=== PATIENT | female | born 1975 | race Caucasian/White ===

== ENCOUNTER → 2017-06-04 13:37 | Outpatient (CLI) | payer BC, SELFPAY ==
--- NOTE | 2017-06-04 13:40 | CT_ITS ---
CT abdomen pelvis wo con CLINICAL INDICATION: Right-sided abdominal pain ORDERING PHYSICIAN: Jez Enamorado MD PATIENT AGE: 41 years COMPARISON: 08/28/2016 TECHNIQUE: Axial images obtained with sagittal and coronal reformats. PROCEDURE: Oral Contrast: None IV Contrast: None . FINDINGS: Lung bases are clear. The liver, gallbladder, spleen, adrenal glands, and pancreas have an unremarkable unenhanced CT appearance. No renal or ureteral calculi, hydronephrosis, or renal mass evident. Unremarkable appearing urinary bladder. No evidence of appendicitis or diverticulitis. No intestinal obstruction or free air is. There is a small umbilical hernia containing fat. No pelvic mass, focal inflammatory change, or pelvic fluid collection evident. No acute bony anomalies. IMPRESSION: 1. No acute abdominal or pelvic findings. 2. Small umbilical hernia containing fat
== END ==
PROVIDERS: Family Provider Emergency Medicine; PCP Emergency Medicine; Visit Provider Emergency Medicine
DX: R10.9 Unspecified abdominal pain (principal)
CPT/HCPCS: 74176

== ENCOUNTER → 2017-09-09 09:12 | Outpatient (REF) | payer BC, SELFPAY ==
[2017-09-09 13:40] LABS: Basophils # 0.1 K/mm3 (0-0.2); Basophils % 0.6 % (0.1-2.0); Eosinophils # 0.4 K/mm3 (0.0-0.4); Eosinophils % 4.9 % (0.1-12.0); Hematocrit 45.4 % (37.0-47.0); Hemoglobin 14.1 g/dL (12.2-16.2); Lymphocytes # 1.4 K/mm3 (0.7-4.5); Lymphocytes % 16.7 K/mm3 (10-50); Mean Corpuscular Volume 87.2 fl (81-99); Mean Platelet Volume 8.6 fl (7.4-10.4); Monocytes # 0.5 K/mm3 (0.1-1.0); Monocytes % 6.3 % (1.7-9.3); Neutrophils # 6.1 K/mm3 (1.8-7.8); Neutrophils % 71.5 % (37.0-80.0); Platelet Count 321 K/mm3 (142-424); Red Cell Distribution Width 12.6 % (11.5-17.5); White Blood Count 8.5 K/mm3 (4.8-10.8)
[2017-09-09 14:24] LABS: Alanine Aminotransferase 32 U/L (12-78); Albumin/Globulin Ratio 1.1 (1.1-1.8); Alkaline Phosphatase 94 U/L (46-116); Anion Gap 12.3 mEq/L (5-15); Aspartate Amino Transferase 16 U/L (15-37); Bilirubin,Total 0.4 mg/dL (0.2-1.0); Blood Urea Nitrogen 16 mg/dL (7-18); Calcium 9.5 mg/dL (8.5-10.1); Carbon Dioxide 31 mmol/L (21.0-32.0); Chloride 101 mmol/L (98-107); Chol/HDL Ratio 4.5 (1-3.5); Cholesterol 187 mg/dL (140-200); Creatinine,Serum 0.71 mg/dL (0.55-1.02); Estimated Glomerular Filt Rate 90 ml/min (>60); GFR (African American) 109 ML/MIN (>60); Globulin 3.6 gm/dl (1.3-3.2); Glucose 126 mg/dL (74-106); HDL Cholesterol 42 mg/dL (29-89); LDL Cholesterol 128 mg/dL (0-130); Potassium 4.3 mmoL/L (3.5-5.1); Sodium 140 mmol/L (136-145); T4 (Thyroxine) 6.6 ug/dl (4.7-13.3); Thyroid Stimulating Hormone 6.52 uIU/ml (0.358-3.740); Total Protein,Serum 7.6 gm/dL (6.4-8.2); Triglycerides 86 mg/dL (30-200); VLDL Cholesterol 17 mg/dL (0-40)
[2017-09-10 09:01] LABS: Vitamin D 25 Hydroxy 40.9 ng/mL (30.0-100.0)
[2017-09-10 15:40] LABS: Hemoglobin A1C 6.2 % (0.0-7.0)
== END ==
LOC: LAB 09:12
PROVIDERS: Visit Provider Physician Assistant
DX: R60.0 Localized edema (principal); E03.9 Hypothyroidism, unspecified
CPT/HCPCS: 80053; 80061; 82652; 83036; 84436; 84443; 85025

== ENCOUNTER → 2017-09-09 14:20 | Outpatient (CLI) | payer BC, SELFPAY | PROVIDERS: Visit Provider Physician Assistant | DX: E03.9 Hypothyroidism, unspecified (principal) ==

== ENCOUNTER → 2017-10-12 12:56 | Outpatient (CLI) | payer BC, SELFPAY ==
--- NOTE | 2017-10-12 12:58 | CA_ITS ---
PROCEDURE: 2-D M-mode and color Doppler study INDICATIONS FOR THE TEST: Chest pain COPD Heart Murmur Tobacco Smoking Palpitations Fatigue Syncope EdemaX Hypertension Diabetes Mellitus Rheumatic Fever SOB KAMARA ObesityXHyperlipidemia Family History HD Additional History TDS SECONDARY TO MORBID OBESITY PATIENT INFORMATION HEIGHT: 65 WEIGHT:304 GENDER: Female B/P:132/80 2-D/M-MODE INTERPRETATION: 2-D MEASUREMENTS OBSERVED VALUES IN CMS Right Ventricular Dimension (RVDd) 2.5 Interventricular Septum (Thickness)(IVsd) .9 Left Ventricular Internal Dimensions(LVIDd) 5.6 Left Ventricular Posterior Wall (Thickness)(LVPWd) 1.3 Aortic Root 3.3 Aortic Cusp Separation 1.7 Left Atrial Dimensions (LAD) 3.9 2D 1. Left atrium is mildly enlarged, left ventricle is normal size, left ventricle wall thickness is upper limit of normal, there is preserved left ventricular systolic function, visually estimated ejection fraction 55% with no obvious regional wall motion abnormality. 2. The right atrium and right ventricle are mildly enlarged with normal contractility. 3. The aortic valve is minimally thickened and fibrosed. 4. The mitral and tricuspid valve are structurally normal. 5. The pulmonic valve is poorly visualized. 6. No significant pericardial effusion noted. DOPPLER INTERROGATION: Doppler interrogation of the aortic, mitral and tricuspid valvular presence of mild mitral and tricuspid regurgitation, calculated right ventricular systolic pressure is 49 mmHg consistent with moderate pulmonary hypertension, diastolic parameters are inconclusive. CONCLUSION: 1. Mildly enlarged left atrium, normal left ventricular size, visually estimated ejection fraction 55% with no obvious regional wall motion abnormality, diastolic parameters are inconclusive. 2. Mildly enlarged right ventricle with normal contractility. 3. Mild mitral and tricuspid regurgitation, calculated right ventricular systolic pressure is 49 mmHg consistent with moderate pulmonary hypertension 4. No significant pericardial effusion noted.
== END ==
PROVIDERS: Family Provider Emergency Medicine; PCP Emergency Medicine; Visit Provider Emergency Medicine
DX: R60.0 Localized edema (principal)
CPT/HCPCS: 93306

== ENCOUNTER → 2017-11-02 09:36 | Outpatient (CLI) | payer BC, SELFPAY ==
--- NOTE | 2017-11-02 09:39 | CT_ITS ---
CT angio chest Ordering Physician: Jose L Jensen MD Patient Age: 42 years: Female HISTORY: ITS.REASON: Shortness of breath TECHNIQUE: Thin section Helical CT scanning performed the chest following bolus administration 75 cc Isovue-[id number] followed by 40 and multiple normal saline axial reconstruction performed. In addition sagittal and coronal slabMipp images performed on CT workstation All CT scans at this facility used one or more dose reduction techniques , viz: automatic exposure control, ma/Kv adjustment per patient's size, (including targeted exam where dose matched to the indication; i.e. head); or iterative reconstruction . COMPARISON : FINDINGS No evidence of pulmonary embolism. Pulmonary arteries appear moderate slightly generous in size. But do not appear to be significantly dilated or enlarged. Right and left pulmonary artery measure up to 2.1 cm bilateral. Aorta normal caliber. No aneurysm. No significant findings. Heart. Upper Normal size. No pericardial effusion. Lung rosario appear clear with no focal nodule or mass. No consolidation. No focal infiltrate. . There may be some very subtle groundglass opacity character to the upper lobes bilaterally suspect reflecting atelectasis given the relatively modest lung volume in this generous size patient.. Relative low lung volume noted on this study diaphragm only down to the anterior right fourth fifth rib. Suggest follow-up chest film for comparison this regard.. No hilar no mediastinal adenopathy or mass.Generous adipose at superior most mediastinum Osseous marginal osteophytes throughout spine reflecting developing degenerative changes here. No pleural effusion. No pleural findings. Chest wall unremarkable. Airways. Modest caliber, but overall unremarkable. Uppermost abdomen. Gallbladder generous in size but no gallstones evident.. Fatty changes liver. IMPRESSION----- Pulmonary arteries appear within normal limits. No evidence of pulmonary embolism Generous caliber but within normal limits, arteries. Lungs overall clear. No focal pneumonia or consolidation.. Perhaps very subtle Subtle groundglass opacity towards upper lung rosario which in this case I tend to favor complex mild atelectasis rather than lung pathology , particular Noting Relatively low lung volumes on this CT in this generous size patient... Follow-up 2 view chest suggested to correlate lung volume. No prior chest films Heart upper normal in size Borderline Cardiomegaly.
== END ==
PROVIDERS: Family Provider Emergency Medicine; PCP Emergency Medicine; Visit Provider Internal Medicine
DX: R06.09 Other forms of dyspnea (principal); R07.89 Other chest pain; I27.20 Pulmonary hypertension, unspecified; E66.9 Obesity, unspecified; Z68.43 Body mass index [BMI] 50.0-59.9, adult
CPT/HCPCS: 71275; Q9967

== ENCOUNTER → 2018-06-24 14:50 | Outpatient (CLI) | payer BC, SELFPAY ==
--- NOTE | 2018-06-24 14:54 | XR_ITS ---
EXAM: XR thoracic spine 3V HISTORY: Thoracic spine pain radiating into the right side ITS.REASON: thoracic back pain Comparison: None FINDINGS: There is mild multilevel degenerative disc disease in the midthoracic spine. Endplate osteophytes are present from T6 to T12. No fracture or dislocation. No lytic or blastic change. There is minimal mid thoracic curvature convex right IMPRESSION: Degenerative changes, no acute finding
== END ==
PROVIDERS: PCP Physician Assistant; Visit Provider Physician Assistant
DX: M54.6 Pain in thoracic spine (principal)
CPT/HCPCS: 72072

== ENCOUNTER → 2018-12-06 18:13 | Outpatient (CLI) | payer BC, SELFPAY ==
[2018-12-06 18:32] LABS: Basophils # 0.1 K/mm3 (0-0.2); Basophils % 0.7 % (0.1-2.0); Eosinophils # 0.7 K/mm3 (0.0-0.4); Eosinophils % 8.5 % (0.1-12.0); Hemoglobin 13.9 g/dL (12.2-16.2); Lymphocytes # 1.5 K/mm3 (0.7-4.5); Lymphocytes % 17.4 % (10-50); Mean Corpuscular HGB Conc 31.7 g/dL (31.8-35.4); Mean Corpuscular Hemoglobin 27.9 pg (27.0-31.2); Mean Corpuscular Volume 88.1 fl (81-99); Mean Platelet Volume 7.7 fl (7.4-10.4); Monocytes # 0.7 K/mm3 (0.1-1.0); Monocytes % 8.3 % (1.7-9.3); Neutrophils # 5.7 K/mm3 (1.8-7.8); Neutrophils % 65.2 % (37.0-80.0); Platelet Count 354 K/mm3 (142-424); Red Blood Count 4.99 M/mm3 (4.20-5.40); Red Cell Distribution Width 12.9 % (11.5-17.5); White Blood Count 8.7 K/mm3 (4.8-10.8)
[2018-12-06 20:47] LABS: Alanine Aminotransferase 31 U/L (12-78); Albumin Level 3.9 gm/dL (3.4-5.0); Albumin/Globulin Ratio 1.1 (1.1-1.8); Alkaline Phosphatase 99 U/L (46-116); Anion Gap 13.9 mEq/L (5-15); Aspartate Amino Transferase 12 U/L (15-37); Bilirubin,Total 0.3 mg/dL (0.2-1.0); Blood Urea Nitrogen 9 mg/dL (7-18); Calcium 9.2 mg/dL (8.5-10.1); Carbon Dioxide 29 mmol/L (21.0-32.0); Chloride 101 mmol/L (98-107); Chol/HDL Ratio 4.3 (1-3.5); Cholesterol 175 mg/dL (140-200); Creatinine,Serum 0.64 mg/dL (0.55-1.02); Estimated Glomerular Filt Rate 101 ml/min (>60); GFR (African American) 122 ML/MIN (>60); Globulin 3.5 gm/dl (1.3-3.2); Glucose 88 mg/dL (74-106); HDL Cholesterol 41 mg/dL (29-89); LDL Cholesterol 116 mg/dL (0-130); Potassium 3.9 mmoL/L (3.5-5.1); Sodium 140 mmol/L (136-145); Total Protein,Serum 7.4 gm/dL (6.4-8.2); Triglycerides 90 mg/dL (30-200); VLDL Cholesterol 18 mg/dL (0-40)
[2018-12-08 09:48] LABS: Vitamin D 25 Hydroxy 30.5 ng/mL (30.0-100.0)
== END ==
PROVIDERS: Visit Provider Nurse Practitioner Family
DX: J34.89 Other specified disorders of nose and nasal sinuses (principal)
CPT/HCPCS: 80053; 80061; 82652; 84443; 85025

== ENCOUNTER → 2020-08-28 17:17 | Outpatient (CLI) | payer BC, SELFPAY ==
[2020-08-28 17:38] LABS: Basophils # 0.1 K/mm3 (0-0.2); Basophils % 0.6 % (0.1-2.0); Eosinophils # 0.5 K/mm3 (0.0-0.4); Eosinophils % 4.8 % (0.1-12.0); Hematocrit 43.7 % (37.0-47.0); Hemoglobin 13.9 g/dL (12.2-16.2); Lymphocytes # 1.5 K/mm3 (0.7-4.5); Lymphocytes % 15.8 % (10-50); Mean Corpuscular HGB Conc 31.9 g/dL (31.8-35.4); Mean Corpuscular Hemoglobin 27.8 pg (27.0-31.2); Mean Corpuscular Volume 87.3 fl (81-99); Mean Platelet Volume 8.5 fl (7.4-10.4); Monocytes # 0.5 K/mm3 (0.1-1.0); Monocytes % 4.8 % (1.7-9.3); Neutrophils # 7.2 K/mm3 (1.8-7.8); Platelet Count 327 K/mm3 (142-424); Red Blood Count 5.01 M/mm3 (4.20-5.40); Red Cell Distribution Width 12.9 % (11.5-17.5); White Blood Count 9.7 K/mm3 (4.8-10.8)
[2020-08-28 17:44] LABS: Alanine Aminotransferase 28 U/L (12-78); Albumin Level 4.2 g/dl (3.5-5.0); Albumin/Globulin Ratio 1.6 (1.1-1.8); Alkaline Phosphatase 83 U/L (38-126); Aspartate Amino Transferase 25 U/L (14-36); Bilirubin,Total 0.6 mg/dl (0.2-1.3); Blood Urea Nitrogen 12 mg/dl (7-17); Calcium 8.8 mg/dl (8.4-10.2); Carbon Dioxide 28 mmol/L (22.0-30.0); Chloride 102 mmol/L (98-107); Chol/HDL Ratio 4.4 (1-3.5); Cholesterol 179 mg/dl (140-200); Estimated Glomerular Filt Rate 108 ml/min (>60); GFR (African American) 130 ML/MIN (>60); Globulin 2.7 g/dL (1.3-3.2); Glucose 161 mg/dl (74-100); HDL Cholesterol 41 mg/dl (40-60); Sodium 137 mmol/L (136-145); Total Protein,Serum 6.9 g/dl (6.3-8.2); Triglycerides 118 mg/dl (30-150); VLDL Cholesterol 24 mg/dL (0-40)
[2020-08-28 17:55] LABS: Direct LDL Cholesterol 111.93 mg/dL (100-129)
[2020-08-28 18:02] LABS: 25-OH Vitamin D, Total 27.4 ng/mL (30-100)
[2020-08-28 18:03] LABS: Hemoglobin A1C 6.6 % (4.0-6.0); T4 (Thyroxine) 6.4 ug/dl (5.53-11.0)
[2020-08-28 18:14] LABS: Thyroid Stimulating Hormone 5.23 uIU/mL (0.465-4.68)
== END ==
PROVIDERS: Visit Provider Nurse Practitioner Family
DX: I10 Essential (primary) hypertension (principal); E03.9 Hypothyroidism, unspecified; R73.03 Prediabetes; E55.9 Vitamin D deficiency, unspecified; E66.9 Obesity, unspecified; Z68.43 Body mass index [BMI] 50.0-59.9, adult
CPT/HCPCS: 80053; 80061; 82306; 83036; 84436; 84443; 85025

== ENCOUNTER 2025-01-08 21:20 | Emergency (ER) | payer BC, SELFPAY ==
--- OUTSIDE RECORDS SUMMARY | 2025-01-08 22:07 | XMS_ITS | Clinical Summary ---
Author Organization [facility] Address [address] [place] [id number] Care Team Providers Care Cell Preparer Name Role Phone Jez Enamorado MD Primary Care Provider [phone] Allergies No known active allergies Medications HYDROcod Polst-CPM Polst ER (TUSSIONEX PENNKINETIC) 10-8 MG/5ML ER suspension Take FIVE ML (ONE teaspoonful) AT BEDTIME FOR FIVE DAYS 0 07/27/2018 Active levothyroxine (SYNTHROID, LEVOTHROID) 25 MCG tablet Take 25 mcg by mouth Daily. Active Active Problems No known active problems Social History Tobacco Use Types Packs/Day Years Used Date Smoking Tobacco: Never Abuse Screen Answer Date Recorded Unsafe at Home or Work/School Not on file Feels Threatened by Someone? Not on file 02/2023 Does Anyone Keep You from Co ntacting Others or Doint Things Outside the Home? Not on file 01/21/2023 Physical Sign of Abuse Present Not on file 1 Housing Stability Answer Date Recorded Current Living Arrangements Not on file 01/11 Potentially Unsafe Housing Conditions Not on polly e 01/21/2023 Family and Community Support Answer Samuel e Recorded Help with Day-to-Day Activities Not on file 01/21/2023 Lonely or Isolated Not on file 01/21/2023 Employment Answer Date Recorded Do you want help finding or keeping work or a renuka b? Not on file 01/21/2023 Disabilities Answer Date Recorded Concentrating, Remembering, or Making Decisions Difficulty Not on file 01/21/2023 Doing Errands Independently Difficulty Not on fi le 01/21/2023 Education Answer Date Recorded Help with school or training? Not on file Preferred Language Not on file 01/21/2023 Comments No Sex and Gender Information Value Date Recorded Sex Assigned at Not on file Legal Sex Female 8:29 PM EDT Gender Identity Not on file Sexual Orientation Not on file Last Filed Vital Signs Vital Sign Reading Time Taken Comments Blood Pressure 138/88 07/29/2018 4:30 PM EDT Pulse 76 07/29/2018 4:30 PM EDT Temperature 36.8 C (98.3 F) 07/29/2018 4:30 PM EDT Respiratory Rate 20 07/29/2018 4:30 PM EDT Oxygen Saturation 98% 07/29/2018 4:30 PM EDT Inhaled Oxygen Concentration - - Weight 141 kg (311 lb) 07/29/2018 4:30 PM EDT Height 167.6 cm (5' 6 ) 07/29/2018 4:30 PM EDT Body Mass Index 50.2 07/29/2018 4:30 PM EDT Plan of Treatment Health Maintenance Due Date Last Done Comments Annual Gynecologic Pelvic and Breast Exam 1974 TDAP/TD VACCINES (1 - Tdap) 1993 MAMMOGRAM 2014 ANNUAL PHYSICAL 07/29/2018 HEPATITIS C SCREENING 07/29/2018 COLOGUARD 08/02/2019 COLON CANCER SCREENING 5 YEAR SIGMOIDOSCOPY 08/02/2019 COLONOSCOPY 08/02/2019 COLORECTAL CANCER SCREENING 08/02/2019 CT COLONOGRAPHY 08/02/2019 FECAL OCCULT BLOOD TEST 08/02/2019 FIT Testing (1 year) 08/02/2019 Pneumococcal Vaccine 50+ (1 of 1 - PCV) 2024 ZOSTER VACCINE (1 of 2) 2024 INFLUENZA VACCINE 11/11/2024 Care Teams Cell Preparer Relationship Specialty Start Date End Date Jez Enamorado MD [address] ATTN: [place] [id number] PCP - General 02/05/15
--- OUTSIDE RECORDS SUMMARY | 2025-01-08 22:07 | XMS_ITS | Data Portability ---
Author Organization [facility] Address [address] [place] [address] Care Team Providers Care Bisque Tile Burner Name Role Phone ALFREDOZACHHubert BLAISE Primary Care Provider Assessment No assessment recorded. Plan of Treatment Reminders Order Date Submit Date Provider Last Modified By Organization Details Last Modified Time Details Appointments None recorded. Lab influenza virus A + B + SARS-CoV-2 (COVID19) Ag panel, rapid IA, upper respiratory specimen 2024 025 [facility], [address] [place], [address], 5 11:03:22 TSH + free T4, serum 2023 024 [facility], [address], [address], [place], [address], 4 14:12:55 HbA1c (hemoglobin A1c), blood 2023 024 [facility], [address], [address], [place], [address], 4 14:12:56 CBC w/ auto diff 2023 024 [facility], [address], [address], [place], [address], 4 14:12:53 CMP, serum or plasma 2023 024 [facility], [address], [address], [place], [address], 4 14:12:54 HbA1c (hemoglobin A1c), blood 2023 024 [facility], [address], [address], [place], [address], 4 05:09:45 lipid panel, serum 2023 024 [facility], [address], [address], [place], [address], 4 05:09:44 CBC w/ auto diff 2023 024 [facility], [address], [address], [place], [address], 4 05:09:41 CMP, serum or plasma 2023 024 [facility], [address], [address], [place], [address], 4 05:09:43 TSH + free T4, serum 2023 024 [facility], [address], [address], [place], [address], 4 05:09:44 magnesium, serum or plasma 2022 023 [facility], [address], [address], [place], [address], 3 10:36:39 HbA1c (hemoglobin A1c), blood 2022 023 [facility], [address], [address], [place], [address], 3 10:36:37 CMP, serum or plasma 2022 023 [facility], [address], [address], [place], [address], 3 10:36:36 CBC w/ auto diff 2022 023 [facility], [address], [address], [place], [address], 3 10:36:34 TSH, ultra-sensi tive, serum 2022 023 [facility], [address], [address], [place], [address], 3 10:36:38 Referral None recorded. Procedures None recorded. Surgeries None recorded. Imaging XR, ankle, 3 or more view 2023 024 [facility] (Scheduling), [address] [place], [address], 4 16:21:32 XR, lower extremity [address] (Scheduling), [address] [place], [address], 4 07:48:35 XR, tibia + fibula, 2 view [address] (Scheduling), [address] [place], [address], 4 07:48:35 XR, foot, 3 or more view 2023 024 [facility] (Scheduling), [address] [place], [address], 4 16:21:34 US, duplex, venous, lower extremity, unilateral 2022 023 [email or web address] 0 [facility], [address] [place], [address], 3 07:58:25 Medication Orders Tamiflu 75 mg capsule 2024 025 [facility], [address] [place] [address], [id number], 5 14:43:24 Ozempic 1 mg/dose (4 mg/3 mL) subcutaneou s pen injector 2023 024 [facility], [address] [place] [address], [id number], 4 17:50:17 Medrol (Ronal) 4 mg tablets in a dose pack 2023 025 [facility], [address] [place] [address], [id number], 5 10:53:35 Zithromax Z-Ronal 250 mg tablet 2023 025 [facility], [address] [place] [address], [id number], 5 10:53:35 bupropion HCl XL 150 mg 24 hr tablet, extended release 2023 025 [facility], [address] [place] [address], [id number], 5 10:53:35 Patient TargetsNo targets recorded. Patient InstructionsNo instructions recorded. Reason for Referral None Reported. Results Created Date Observation Date Name Description Value Unit Range Abnormal Flag Note LastModifiedBy Organization Detail LastModifiedTime 09/23/19 23 09/23/2022 CBC WITH DIFFE RENTI AL/PL ATELE T WBC 8.1 x10e3 /uL 3.4-10 .8 Not Available [facility] ([facility]) [address] [facility], [place], [address], 09/23/2022 10:36:34 09/23/19 23 09/23/2022 CBC WITH DIFFE RENTI AL/PL ATELE T RBC 4.46 x10e6 /uL 3.77-5 .28 Not Available [facility] ([facility]) [address] [facility], [place], [address], 09/23/2022 10:36:34 09/23/19 23 09/23/2022 CBC WITH DIFFE RENTI AL/PL ATELE T hemoglobin 12.4 g/dL 11.1-1 5.9 Not Available [facility] ([facility]) [address] [facility], [place], [address], 09/23/2022 10:36:34 09/23/19 23 09/23/2022 CBC WITH DIFFE RENTI AL/PL ATELE T hematocrit 38.2 % 34.0-4 6.6 Not Available [facility] ([facility]) [address] [facility], [place], [address], 09/23/2022 10:36:34 09/23/19 23 09/23/2022 CBC WITH DIFFE RENTI AL/PL ATELE T MCV 86 fL 79-97 Not Available [facility] ([facility]) [address] [place], [address], 09/23/2022 10:36:34 09/23/1909/23/2022 CBC WITH DIFFE RENTI AL/PL ATELE T MCH 27.8 pg 26.6-3 3.0 Not Available [facility] ([facility]) [address] [facility], [place], [address], 09/23/2022 10:36:34 09/23/19 23 09/23/2022 CBC WITH DIFFE RENTI AL/PL ATELE T MCHC 32.5 g/dL 31.5-3 5.7 Not Available [facility] ([facility]) [address] [place], [address], 09/23/2022 10:36:34 09/23/19 23 09/23/2022 CBC WITH DIFFE RENTI AL/PL ATELE T RDW 12.4 % 11.7-1 5.4 Not Available [facility] ([facility]) [address] [facility], [place], [address], 09/23/2022 10:36:34 09/23/19 23 09/23/2022 CBC WITH DIFFE RENTI AL/PL ATELE T platelets 328 x10e3 /uL 150-45 0 Not Available [facility] ([facility]) [address] [facility], [place], [address], 09/23/2022 10:36:34 09/23/19 23 09/23/2022 CBC WITH DIFFE RENTI AL/PL ATELE T neutrophils 66 % not estab. Not Available [facility] ([facility]) [address] [facility], [place], [address], 09/23/2022 10:36:34 09/23/19 23 09/23/2022 CBC WITH DIFFE RENTI AL/PL ATELE T lymphs 19 % not estab. Not Available [facility] ([facility]) [address] [facility], [place], [address], 09/23/2022 10:36:34 09/23/19 23 09/23/2022 CBC WITH DIFFE RENTI AL/PL ATELE T monocytes 8 % not estab. Not Available [facility] ([facility]) [address] [facility], [place], [address], 09/23/2022 10:36:34 09/23/19 23 09/23/2022 CBC WITH DIFFE RENTI AL/PL ATELE T eos 6 % not estab. Not Available [facility] ([facility]) [address] [facility], [place], [address], 09/23/2022 10:36:34 09/23/19 23 09/23/2022 CBC WITH DIFFE RENTI AL/PL ATELE T basos 1 % not estab. Not Available [facility] ([facility]) [address] [facility], [place], [address], 09/23/2022 10:36:34 09/23/19 23 09/23/2022 CBC WITH DIFFE RENTI AL/PL ATELE T immature cells ON SITE SOIL EVALUATOR Not Available [facility] ([facility]) [address] [facility], [place], [address], 09/23/2022 10:36:34 09/23/19 23 09/23/2022 CBC WITH DIFFE RENTI AL/PL ATELE T neutrophils (absolute) 5.4 x10e3 /uL 1.4-7. 0 Not Available [facility] ([facility]) [address] [facility], [place], [address], 09/23/2022 10:36:34 09/23/19 23 09/23/2022 CBC WITH DIFFE RENTI AL/PL ATELE T lymphs (absolute) 1.5 x10e3 /uL 0.7-3. 1 Not Available [facility] ([facility]) [address] [facility], [place], [address], 09/23/2022 10:36:34 09/23/19 23 09/23/2022 CBC WITH DIFFE RENTI AL/PL ATELE T monocytes(ab solute) 0.7 x10e3 /uL 0.1-0. 9 Not Available [facility] ([facility]) [address] [place], [address], 09/23/2022 10:36:34 09/23/19 23 09/23/2022 CBC WITH DIFFE RENTI AL/PL ATELE T eos (absolute) 0.5 x10e3 /uL 0.0-0. 4 above high normal Not Available [facility] ([facility]) [address] [place], [address], 09/23/2022 10:36:34 09/23/19 23 09/23/2022 CBC WITH DIFFE RENTI AL/PL ATELE T baso (absolute) 0.1 x10e3 /uL 0.0-0. 2 Not Available [facility] ([facility]) [address] [facility], [place], [address], 09/23/2022 10:36:34 09/23/19 23 09/23/2022 CBC WITH DIFFE RENTI AL/PL ATELE T immature granulocytes 0 % not estab. Not Available [facility] ([facility]) [address] [facility], [place], [address], 09/23/2022 10:36:34 09/23/19 23 09/23/2022 CBC WITH DIFFE RENTI AL/PL ATELE T immature grans (abs) 0.0 x10e3 /uL 0.0-0. 1 Not Available [facility] ([facility]) [address] [facility], [place], [address], 09/23/2022 10:36:34 09/23/19 23 09/23/2022 CBC WITH DIFFE RENTI AL/PL ATELE T NRBC ON SITE SOIL EVALUATOR Not Available [facility] ([facility]) [address] [facility], [place], [address], 09/23/2022 10:36:34 09/23/19 23 09/23/2022 CBC WITH DIFFE RENTI AL/PL ATELE T hematology comments: ON SITE SOIL EVALUATOR Not Available [facility] ([facility]) [address] [facility], [place], [address], 09/23/2022 10:36:34 09/23/19 23 09/23/2022 COMP. METAB OLIC PANEL (14) glucose 97 mg/dL 70-99 Not Available [facility] ([facility]) [address] [facility], [place], [address], 09/23/2022 10:36:36 09/23/19 23 09/23/2022 COMP. METAB OLIC PANEL (14) BUN 14 mg/dL 6-24 Not Available [facility] ([facility]) [address] [facility], [place], [address], 09/23/2022 10:36:36 09/23/19 23 09/23/2022 COMP. METAB OLIC PANEL (14) creatinine 0.60 mg/dL 0.57-1 .00 Not Available [facility] ([facility]) [address] [facility], [place], [address], 09/23/2022 10:36:36 09/23/19 23 09/23/2022 COMP. METAB OLIC PANEL (14) eGFR 111 mL/mi n/1.7 3 >59 Not Available [facility] ([facility]) [address] [facility], [place], [address], 09/23/2022 10:36:36 09/23/19 23 09/23/2022 COMP. METAB OLIC PANEL (14) BUN/creatini ne ratio 23 9-23 Not Available [facility] ([facility]) [address] [facility], [place], [address], 09/23/2022 10:36:36 09/23/19 23 09/23/2022 COMP. METAB OLIC PANEL (14) sodium 141 mmol/ L 134-14 4 Not Available [facility] ([facility]) [address] [facility], [place], [address], 09/23/2022 10:36:36 09/23/19 23 09/23/2022 COMP. METAB OLIC PANEL (14) potassium 4.2 mmol/ L 3.5-5. 2 Not Available [facility] ([facility]) [address] [facility], [place], [address], 09/23/2022 10:36:36 09/23/19 23 09/23/2022 COMP. METAB OLIC PANEL (14) chloride 102 mmol/ L 96-106 Not Available [facility] ([facility]) [address] [facility], [place], [address], 09/23/2022 10:36:36 09/23/19 23 09/23/2022 COMP. METAB OLIC PANEL (14) carbon dioxide, total 27 mmol/ L 20-29 Not Available [facility] ([facility]) [address] [facility], [place], [address], 09/23/2022 10:36:36 09/23/19 23 09/23/2022 COMP. METAB OLIC PANEL (14) calcium 9.6 mg/dL 8.7-10 .2 Not Available [facility] ([facility]) [address] [facility], [place], [address], 09/23/2022 10:36:36 09/23/19 23 09/23/2022 COMP. METAB OLIC PANEL (14) protein, total 7.1 g/dL 6.0-8. 5 Not Available [facility] ([facility]) [address] [facility], [place], [address], 09/23/2022 10:36:36 09/23/19 23 09/23/2022 COMP. METAB OLIC PANEL (14) albumin 4.5 g/dL 3.8-4. 8 Not Available [facility] ([facility]) [address] [place], [address], 09/23/2022 10:36:36 09/23/19 23 09/23/2022 COMP. METAB OLIC PANEL (14) globulin, total 2.6 g/dL 1.5-4. 5 Not Available [facility] ([facility]) [address] [place], [address], 09/23/2022 10:36:36 09/23/19 23 09/23/2022 COMP. METAB OLIC PANEL (14) A/G ratio 1.7 1.2-2. 2 Not Available [facility] ([facility]) [address] [facility], [place], [address], 09/23/2022 10:36:36 09/23/19 23 09/23/2022 COMP. METAB OLIC PANEL (14) bilirubin, total <0.2 mg/dL 0.0-1. 2 Not Available [facility] ([facility]) [address] [place], [address], 09/23/2022 10:36:36 09/23/19 23 09/23/2022 COMP. METAB OLIC PANEL (14) alkaline phosphatase 92 IU/L 44-121 Not Available [facility] ([facility]) [address] [facility], [place], [address], 09/23/2022 10:36:36 09/23/19 23 09/23/2022 COMP. METAB OLIC PANEL (14) AST (SGOT) 13 IU/L 0-40 Not Available [facility] ([facility]) [address] [facility], [place], [address], 09/23/2022 10:36:36 09/23/19 23 09/23/2022 COMP. METAB OLIC PANEL (14) ALT (SGPT) 17 IU/L 0-32 Not Available [facility] ([facility]) [address] [facility], [place], [address], 09/23/2022 10:36:36 09/23/19 23 09/23/2022 HEMOG LOBIN A1C hemoglobin A1C 6.0 % 4.8-5. 6 above high normal Predi abete s: 5.7 - 6.4 Diabe ryder: >6.4 Glyce tyron contr ol for adult s with diabe ryder: <7.0 Not Available [facility] ([facility]) [address] [facility], [place], [address], 09/23/2022 10:36:37 09/23/19 23 09/23/2022 TSH TSH 6.790 uIU/m L 0.450- 4.500 above high normal Not Available [facility] ([facility]) [address] [facility], [place], [address], 09/23/2022 10:36:37 09/23/19 23 09/23/2022 MAGNE SIUM magnesium 2.1 mg/dL 1.6-2. 3 Not Available [facility] ([facility]) [address] [facility], [place], [address], 09/23/2022 10:36:38 07/29/19 24 07/30/2023 CBC WITH DIFFE RENTI AL/PL ATELE T WBC 6.9 x10e3 /uL 3.4-10 .8 Not Available [facility] ([facility]) [address] [facility], [place], [address], 07/31/2023 05:09:41 07/29/19 24 07/30/2023 CBC WITH DIFFE RENTI AL/PL ATELE T RBC 4.57 x10e6 /uL 3.77-5 .28 Not Available [facility] ([facility]) [address] [place], [address], 07/31/2023 05:09:41 07/29/19 24 07/30/2023 CBC WITH DIFFE RENTI AL/PL ATELE T hemoglobin 12.6 g/dL 11.1-1 5.9 Not Available [facility] ([facility]) [address] [place], [address], 07/31/2023 05:09:41 07/29/19 24 07/30/2023 CBC WITH DIFFE RENTI AL/PL ATELE T hematocrit 40.2 % 34.0-4 6.6 Not Available [facility] ([facility]) [address] [place], [address], 07/31/2023 05:09:41 07/29/19 24 07/30/2023 CBC WITH DIFFE RENTI AL/PL ATELE T MCV 88 fL 79-97 Not Available [facility] ([facility]) [address] [place], [address], 07/31/2023 05:09:41 07/29/19 24 07/30/2023 CBC WITH DIFFE RENTI AL/PL ATELE T MCH 27.6 pg 26.6-3 3.0 Not Available [facility] ([facility]) [address] [facility], [place], [address], 07/31/2023 05:09:41 07/29/19 24 07/30/2023 CBC WITH DIFFE RENTI AL/PL ATELE T MCHC 31.3 g/dL 31.5-3 5.7 below low normal Not Available [facility] ([facility]) [address] [facility], [place], [address], 07/31/2023 05:09:41 07/29/19 24 07/30/2023 CBC WITH DIFFE RENTI AL/PL ATELE T RDW 12.8 % 11.7-1 5.4 Not Available [facility] ([facility]) [address] [place], [address], 07/31/2023 05:09:41 07/29/19 24 07/30/2023 CBC WITH DIFFE RENTI AL/PL ATELE T platelets 318 x10e3 /uL 150-45 0 Not Available [facility] ([facility]) [address] [place], [address], 07/31/2023 05:09:41 07/29/19 24 07/30/2023 CBC WITH DIFFE RENTI AL/PL ATELE T neutrophils 69 % not estab. Not Available [facility] ([facility]) [address] [place], [address], 07/31/2023 05:09:41 07/29/19 24 07/30/2023 CBC WITH DIFFE RENTI AL/PL ATELE T lymphs 18 % not estab. Not Available [facility] ([facility]) [address] [facility], [place], [address], 07/31/2023 05:09:41 07/29/19 24 07/30/2023 CBC WITH DIFFE RENTI AL/PL ATELE T monocytes 8 % not estab. Not Available [facility] ([facility]) [address] [facility], [place], [address], 07/31/2023 05:09:41 07/29/19 24 07/30/2023 CBC WITH DIFFE RENTI AL/PL ATELE T eos 5 % not estab. Not Available [facility] ([facility]) [address] [facility], [place], [address], 07/31/2023 05:09:41 07/29/19 24 07/30/2023 CBC WITH DIFFE RENTI AL/PL ATELE T basos 0 % not estab. Not Available [facility] ([facility]) [address] [facility], [place], [address], 07/31/2023 05:09:41 07/29/19 24 07/30/2023 CBC WITH DIFFE RENTI AL/PL ATELE T immature cells ON SITE SOIL EVALUATOR Not Available [facility] ([facility]) [address] [facility], [place], [address], 07/31/2023 05:09:41 07/29/19 24 07/30/2023 CBC WITH DIFFE RENTI AL/PL ATELE T neutrophils (absolute) 4.8 x10e3 /uL 1.4-7. 0 Not Available [facility] ([facility]) [address] [facility], [place], [address], 07/31/2023 05:09:41 07/29/19 24 07/30/2023 CBC WITH DIFFE RENTI AL/PL ATELE T lymphs (absolute) 1.2 x10e3 /uL 0.7-3. 1 Not Available [facility] ([facility]) [address] [place], [address], 07/31/2023 05:09:41 07/29/19 24 07/30/2023 CBC WITH DIFFE RENTI AL/PL ATELE T monocytes(ab solute) 0.6 x10e3 /uL 0.1-0. 9 Not Available [facility] ([facility]) [address] [facility], [place], [address], 07/31/2023 05:09:41 07/29/19 24 07/30/2023 CBC WITH DIFFE RENTI AL/PL ATELE T eos (absolute) 0.4 x10e3 /uL 0.0-0. 4 Not Available [facility] ([facility]) [address] [facility], [place], [address], 07/31/2023 05:09:41 07/29/19 24 07/30/2023 CBC WITH DIFFE RENTI AL/PL ATELE T baso (absolute) 0.0 x10e3 /uL 0.0-0. 2 Not Available [facility] ([facility]) [address] [facility], [place], [address], 07/31/2023 05:09:41 07/29/19 24 07/30/2023 CBC WITH DIFFE RENTI AL/PL ATELE T immature granulocytes 0 % not estab. Not Available [facility] ([facility]) [address] [facility], [place], [address], 07/31/2023 05:09:41 07/29/19 24 07/30/2023 CBC WITH DIFFE RENTI AL/PL ATELE T immature grans (abs) 0.0 x10e3 /uL 0.0-0. 1 Not Available [facility] ([facility]) [address] [facility], [place], [address], 07/31/2023 05:09:41 07/29/19 24 07/30/2023 CBC WITH DIFFE RENTI AL/PL ATELE T NRBC ON SITE SOIL EVALUATOR Not Available [facility] ([facility]) [address] [facility], [place], [address], 07/31/2023 05:09:41 07/29/19 24 07/30/2023 CBC WITH DIFFE RENTI AL/PL ATELE T hematology comments: ON SITE SOIL EVALUATOR Not Available [facility] ([facility]) [address] [place], [address], 07/31/2023 05:09:41 07/29/19 24 07/30/2023 COMP. METAB OLIC PANEL (14) glucose 95 mg/dL 70-99 Not Available [facility] ([facility]) [address] [place], [address], 07/31/2023 05:09:43 07/29/19 24 07/30/2023 COMP. METAB OLIC PANEL (14) BUN 12 mg/dL 6-24 Not Available [facility] ([facility]) [address] [place], [address], 07/31/2023 05:09:43 07/29/19 24 07/30/2023 COMP. METAB OLIC PANEL (14) creatinine 0.63 mg/dL 0.57-1 .00 Not Available [facility] ([facility]) [address] [place], [address], 07/31/2023 05:09:43 07/29/19 24 07/30/2023 COMP. METAB OLIC PANEL (14) eGFR 109 mL/mi n/1.7 3 >59 Not Available [facility] ([facility]) [address] [place], [address], 07/31/2023 05:09:43 07/29/19 24 07/30/2023 COMP. METAB OLIC PANEL (14) BUN/creatini ne ratio 19 9-23 Not Available [facility] ([facility]) [address] [place], [address], 07/31/2023 05:09:43 07/29/19 24 07/30/2023 COMP. METAB OLIC PANEL (14) sodium 140 mmol/ L 134-14 4 Not Available [facility] ([facility]) [address] [place], [address], 07/31/2023 05:09:43 04/17/20 24 07/30/2023 COMP. METAB OLIC PANEL (14) potassium 4.1 mmol/ L 3.5-5. 2 Not Available [facility] ([facility]) [address] [place], [address], 07/31/2023 05:09:43 07/29/19 24 07/30/2023 COMP. METAB OLIC PANEL (14) chloride 102 mmol/ L 96-106 Not Available [facility] ([facility]) [address] [facility], [place], [address], 07/31/2023 05:09:43 07/29/19 24 07/30/2023 COMP. METAB OLIC PANEL (14) carbon dioxide, total 25 mmol/ L 20-29 Not Available [facility] ([facility]) [address] [facility], [place], [address], 07/31/2023 05:09:43 07/29/19 24 07/30/2023 COMP. METAB OLIC PANEL (14) calcium 8.9 mg/dL 8.7-10 .2 Not Available [facility] ([facility]) [address] [place], [address], 07/31/2023 05:09:43 07/29/19 24 07/30/2023 COMP. METAB OLIC PANEL (14) protein, total 6.6 g/dL 6.0-8. 5 Not Available [facility] ([facility]) [address] [place], [address], 07/31/2023 05:09:43 07/29/19 24 07/30/2023 COMP. METAB OLIC PANEL (14) albumin 4.0 g/dL 3.9-4. 9 Not Available [facility] ([facility]) [address] [place], [address], 07/31/2023 05:09:43 07/29/19 24 07/30/2023 COMP. METAB OLIC PANEL (14) globulin, total 2.6 g/dL 1.5-4. 5 Not Available [facility] ([facility]) [address] [place], [address], 07/31/2023 05:09:43 07/29/19 24 07/30/2023 COMP. METAB OLIC PANEL (14) A/G ratio 1.5 1.2-2. 2 Not Available [facility] ([facility]) [address] [place], [address], 07/31/2023 05:09:43 07/29/19 24 07/30/2023 COMP. METAB OLIC PANEL (14) bilirubin, total 0.3 mg/dL 0.0-1. 2 Not Available [facility] ([facility]) [address] [place], [address], 07/31/2023 05:09:43 07/29/19 24 07/30/2023 COMP. METAB OLIC PANEL (14) alkaline phosphatase 91 IU/L 44-121 Not Available [facility] ([facility]) [address] [place], [address], 07/31/2023 05:09:43 07/29/19 24 07/30/2023 COMP. METAB OLIC PANEL (14) AST (SGOT) 14 IU/L 0-40 Not Available [facility] ([facility]) [address] [place], [address], 07/31/2023 05:09:43 07/29/19 24 07/30/2023 COMP. METAB OLIC PANEL (14) ALT (SGPT) 16 IU/L 0-32 Not Available [facility] ([facility]) [address] [place], [address], 07/31/2023 05:09:43 07/29/19 24 07/30/2023 LIPID PANEL WITH LDL/H DL RATIO cholesterol, total 170 mg/dL 100-19 9 Not Available [facility] ([facility]) [address] [facility], [place], [address], 07/31/2023 05:09:44 07/29/19 24 07/30/2023 LIPID PANEL WITH LDL/H DL RATIO triglyceride s 68 mg/dL 0-149 Not Available [facility] ([facility]) [address] [facility], [place], [address], 07/31/2023 05:09:44 07/29/19 24 07/30/2023 LIPID PANEL WITH LDL/H DL RATIO HDL cholesterol 47 mg/dL >39 Not Available [facility] ([facility]) [address] [facility], [place], [address], 07/31/2023 05:09:44 07/29/19 24 07/30/2023 LIPID PANEL WITH LDL/H DL RATIO VLDL cholesterol lorenza 13 mg/dL 5-40 Not Available [facility] ([facility]) [address] [facility], [place], [address], 07/31/2023 05:09:44 07/29/19 24 07/30/2023 LIPID PANEL WITH LDL/H DL RATIO LDL chol calc ([facility]) 110 mg/dL 0-99 above high normal Not Available [facility] ([facility]) [address] [facility], [place], [address], 07/31/2023 05:09:44 07/29/19 24 07/30/2023 LIPID PANEL WITH LDL/H DL RATIO comment: ON SITE SOIL EVALUATOR Not Available [facility] ([facility]) [address] [facility], [place], [address], 07/31/2023 05:09:44 07/29/19 24 07/30/2023 LIPID PANEL WITH LDL/H DL RATIO LDL/HDL ratio 2.3 ratio 0.0-3. 2 LDL/H DL Ratio Men Women 1/2 Avg.R isk 1.0 1.5 Avg.R isk 3.6 3.2 2X Avg.R isk 6.2 5.0 3X Avg.R isk 8.0 6.1 Not Available [facility] ([facility]) [address] [place], [address], 07/31/2023 05:09:44 07/29/19 24 07/31/2023 T4 AND TSH TSH 7.430 uIU/m L 0.450- 4.500 above high normal Not Available [facility] ([facility]) [address] [place], [address], 07/31/2023 05:09:44 07/29/19 24 07/31/2023 T4 AND TSH thyroxine (T4) 5.4 ug/dL 4.5-12 .0 Not Available [facility] ([facility]) [address] [place], [address], 07/31/2023 05:09:44 07/29/19 24 07/30/2023 HEMOG LOBIN A1C hemoglobin A1C 7.0 % 4.8-5. 6 above high normal Predi abete s: 5.7 - 6.4 Diabe ryder: >6.4 Glyce tyron contr ol for adult s with diabe ryder: <7.0 Not Available [facility] ([facility]) [address] [place], [address], 07/31/2023 05:09:45 10/26/19 24 10/27/2023 CBC WITH DIFFE RENTI AL/PL ATELE T WBC 8.1 x10e3 /uL 3.4-10 .8 Not Available [facility] ([facility]) [address] [place], [address], 10/27/2023 14:12:53 10/26/19 24 10/27/2023 CBC WITH DIFFE RENTI AL/PL ATELE T RBC 4.50 x10e6 /uL 3.77-5 .28 Not Available [facility] ([facility]) [address] [place], [address], 10/27/2023 14:12:53 10/26/19 24 10/27/2023 CBC WITH DIFFE RENTI AL/PL ATELE T hemoglobin 12.5 g/dL 11.1-1 5.9 Not Available [facility] ([facility]) [address] [place], [address], 10/27/2023 14:12:53 10/26/19 24 10/27/2023 CBC WITH DIFFE RENTI AL/PL ATELE T hematocrit 40.0 % 34.0-4 6.6 Not Available [facility] ([facility]) [address] [place], [address], 10/27/2023 14:12:53 10/26/19 24 10/27/2023 CBC WITH DIFFE RENTI AL/PL ATELE T MCV 89 fL 79-97 Not Available [facility] ([facility]) [address] [place], [address], 10/27/2023 14:12:53 10/26/19 24 10/27/2023 CBC WITH DIFFE RENTI AL/PL ATELE T MCH 27.8 pg 26.6-3 3.0 Not Available [facility] ([facility]) [address] [place], [address], 10/27/2023 14:12:53 10/26/19 24 10/27/2023 CBC WITH DIFFE RENTI AL/PL ATELE T MCHC 31.3 g/dL 31.5-3 5.7 below low normal Not Available [facility] ([facility]) [address] [place], [address], 10/27/2023 14:12:53 10/26/19 24 10/27/2023 CBC WITH DIFFE RENTI AL/PL ATELE T RDW 12.5 % 11.7-1 5.4 Not Available [facility] ([facility]) [address] [place], [address], 10/27/2023 14:12:53 10/26/19 24 10/27/2023 CBC WITH DIFFE RENTI AL/PL ATELE T platelets 331 x10e3 /uL 150-45 0 Not Available [facility] ([facility]) [address] [facility], [place], [address], 10/27/2023 14:12:53 10/26/19 24 10/27/2023 CBC WITH DIFFE RENTI AL/PL ATELE T neutrophils 69 % not estab. Not Available [facility] ([facility]) [address] [facility], [place], [address], 10/27/2023 14:12:53 10/26/19 24 10/27/2023 CBC WITH DIFFE RENTI AL/PL ATELE T lymphs 15 % not estab. Not Available [facility] ([facility]) [address] [facility], [place], [address], 10/27/2023 14:12:53 10/26/19 24 10/27/2023 CBC WITH DIFFE RENTI AL/PL ATELE T monocytes 8 % not estab. Not Available [facility] ([facility]) [address] [facility], [place], [address], 10/27/2023 14:12:53 10/26/19 24 10/27/2023 CBC WITH DIFFE RENTI AL/PL ATELE T eos 7 % not estab. Not Available [facility] ([facility]) [address] [facility], [place], [address], 10/27/2023 14:12:53 10/26/19 24 10/27/2023 CBC WITH DIFFE RENTI AL/PL ATELE T basos 1 % not estab. Not Available [facility] ([facility]) [address] [facility], [place], [address], 10/27/2023 14:12:53 10/26/19 24 10/27/2023 CBC WITH DIFFE RENTI AL/PL ATELE T immature cells ON SITE SOIL EVALUATOR Not Available [facility] ([facility]) [address] [place], [address], 10/27/2023 14:12:53 10/26/19 24 10/27/2023 CBC WITH DIFFE RENTI AL/PL ATELE T neutrophils (absolute) 5.6 x10e3 /uL 1.4-7. 0 Not Available [facility] ([facility]) [address] [place], [address], 10/27/2023 14:12:53 10/26/19 24 10/27/2023 CBC WITH DIFFE RENTI AL/PL ATELE T lymphs (absolute) 1.2 x10e3 /uL 0.7-3. 1 Not Available [facility] ([facility]) [address] [place], [address], 10/27/2023 14:12:53 10/26/19 24 10/27/2023 CBC WITH DIFFE RENTI AL/PL ATELE T monocytes(ab solute) 0.6 x10e3 /uL 0.1-0. 9 Not Available [facility] ([facility]) [address] [place], [address], 10/27/2023 14:12:53 10/26/19 24 10/27/2023 CBC WITH DIFFE RENTI AL/PL ATELE T eos (absolute) 0.5 x10e3 /uL 0.0-0. 4 above high normal Not Available [facility] ([facility]) [address] [place], [address], 10/27/2023 14:12:53 10/26/19 24 10/27/2023 CBC WITH DIFFE RENTI AL/PL ATELE T baso (absolute) 0.1 x10e3 /uL 0.0-0. 2 Not Available [facility] ([facility]) [address] [place], [address], 10/27/2023 14:12:53 10/26/19 24 10/27/2023 CBC WITH DIFFE RENTI AL/PL ATELE T immature granulocytes 0 % not estab. Not Available [facility] ([facility]) [address] [facility], [place], [address], 10/27/2023 14:12:53 10/26/19 24 10/27/2023 CBC WITH DIFFE RENTI AL/PL ATELE T immature grans (abs) 0.0 x10e3 /uL 0.0-0. 1 Not Available [facility] ([facility]) [address] [facility], [place], [address], 10/27/2023 14:12:53 10/26/19 24 10/27/2023 CBC WITH DIFFE RENTI AL/PL ATELE T NRBC ON SITE SOIL EVALUATOR Not Available [facility] ([facility]) [address] [facility], [place], [address], 10/27/2023 14:12:53 10/26/19 24 10/27/2023 CBC WITH DIFFE RENTI AL/PL ATELE T hematology comments: ON SITE SOIL EVALUATOR Not Available [facility] ([facility]) [address] [facility], [place], [address], 10/27/2023 14:12:53 10/26/19 24 10/27/2023 COMP. METAB OLIC PANEL (14) glucose 97 mg/dL 70-99 Not Available [facility] ([facility]) [address] [facility], [place], [address], 10/27/2023 14:12:54 10/26/19 24 10/27/2023 COMP. METAB OLIC PANEL (14) BUN 12 mg/dL 6-24 Not Available [facility] ([facility]) [address] [facility], [place], [address], 10/27/2023 14:12:54 10/26/19 24 10/27/2023 COMP. METAB OLIC PANEL (14) creatinine 0.64 mg/dL 0.57-1 .00 Not Available [facility] ([facility]) [address], [place], [address], 10/27/2023 14:12:54 10/26/19 24 10/27/2023 COMP. METAB OLIC PANEL (14) eGFR 108 mL/mi n/1.7 3 >59 Not Available [facility] ([facility]) [address], [place], [address], 10/27/2023 14:12:54 10/26/19 24 10/27/2023 COMP. METAB OLIC PANEL (14) BUN/creatini ne ratio 19 9-23 Not Available [facility] ([facility]) [address], [place], [address], 10/27/2023 14:12:54 10/26/19 24 10/27/2023 COMP. METAB OLIC PANEL (14) sodium 139 mmol/ L 134-14 4 Not Available [facility] ([facility]) [address] [facility], [place], [address], 10/27/2023 14:12:54 10/26/19 24 10/27/2023 COMP. METAB OLIC PANEL (14) potassium 4.1 mmol/ L 3.5-5. 2 Not Available [facility] ([facility]) [address] [facility], [place], [address], 10/27/2023 14:12:54 10/26/19 24 10/27/2023 COMP. METAB OLIC PANEL (14) chloride 100 mmol/ L 96-106 Not Available [facility] ([facility] [facility]) [address] [facility], [place], [address], 10/27/2023 14:12:54 10/26/19 24 10/27/2023 COMP. METAB OLIC PANEL (14) carbon dioxide, total 24 mmol/ L 20-29 Not Available [facility] ([facility]) [address] [facility], [place], [address], 10/27/2023 14:12:54 10/26/19 24 10/27/2023 COMP. METAB OLIC PANEL (14) calcium 9.2 mg/dL 8.7-10 .2 Not Available [facility] ([facility]) [address] [facility], [place], [address], 10/27/2023 14:12:54 10/26/19 24 10/27/2023 COMP. METAB OLIC PANEL (14) protein, total 6.9 g/dL 6.0-8. 5 Not Available [facility] ([facility]) [address] [facility], [place], [address], 10/27/2023 14:12:54 10/26/19 24 10/27/2023 COMP. METAB OLIC PANEL (14) albumin 4.1 g/dL 3.9-4. 9 Not Available [facility] ([facility]) [address] [facility], [place], [address], 10/27/2023 14:12:54 10/26/19 24 10/27/2023 COMP. METAB OLIC PANEL (14) globulin, total 2.8 g/dL 1.5-4. 5 Not Available [facility] ([facility]) [address] [facility], [place], [address], 10/27/2023 14:12:54 10/26/19 24 10/27/2023 COMP. METAB OLIC PANEL (14) bilirubin, total 0.2 mg/dL 0.0-1. 2 Not Available [facility] ([facility]) [address] [facility], [place], [address], 10/27/2023 14:12:54 10/26/19 24 10/27/2023 COMP. METAB OLIC PANEL (14) alkaline phosphatase 111 IU/L 44-121 Not Available [facility] ([facility]) [address] [facility], [place], [address], 10/27/2023 14:12:54 10/26/19 24 10/27/2023 COMP. METAB OLIC PANEL (14) AST (SGOT) 12 IU/L 0-40 Not Available [facility] ([facility]) [address] [place], [address], 10/27/2023 14:12:54 10/26/19 24 10/27/2023 COMP. METAB OLIC PANEL (14) ALT (SGPT) 18 IU/L 0-32 Not Available [facility] ([facility]) [address] [facility], [place], [address], 10/27/2023 14:12:54 10/26/19 24 10/27/2023 T4 AND TSH TSH 6.820 uIU/m L 0.450- 4.500 above high normal Not Available [facility] ([facility]) [address] [place], [address], 10/27/2023 14:12:55 10/26/19 24 10/27/2023 T4 AND TSH thyroxine (T4) 6.1 ug/dL 4.5-12 .0 Not Available [facility] ([facility]) [address] [place], [address], 10/27/2023 14:12:55 10/26/19 24 10/27/2023 HEMOG LOBIN A1C hemoglobin A1C 6.6 % 4.8-5. 6 above high normal Predi abete s: 5.7 - 6.4 Diabe ryder: >6.4 Glyce tyron contr ol for adult s with diabe ryder: <7.0 Not Available [facility] ([facility]) [address] [place], [address], 10/27/2023 14:12:56 07/07/19 25 07/06/2024 influ rainer virus A + B + SARS- CoV-2 (COVI D19) Ag panel , rapid IA, upper respi rator y speci men FLU A positi ve Not Available [facility] [address] [place], [address], 07/06/2024 10:42:45 07/07/19 25 07/06/2024 influ rainer virus A + B + SARS- CoV-2 (COVI D19) Ag panel , rapid IA, upper respi rator y speci men FLU B negati ve Not Available [address] [place], [address], 07/06/2024 10:42:45 07/07/19 25 07/06/2024 influ rainer virus A + B + SARS- CoV-2 (COVI D19) Ag panel , rapid IA, upper respi rator y speci men SARS COV + SARS OV 2 negati ve Not Available [address] [place], [address], 07/06/2024 10:42:45 09/05/19 23 09/04/2022 finge r(s) 3 views RT [facility] [address] [place] [address] Phone: Fax: Name: ALETHA RANJANA Exam Date: : [birth year] Age 47 Gender : F Access ion: [id number] Physic angela: KRISSY MARTINEZ ty: [facility] Facili ty HSV: Outpat ient Exam: FINGER (S) 3 VIEWS RT Right first digit Histor y: Pain and fall Findin gs: 3 views. Bones appear normal . Joint compar tments are mainta ined and normal ly aligne d. No fractu res are identi fied. Impres ryan: Negati ve. Dictat ed By: JANKI PRATER Transc ribed By: JANKI PRATER Transc ribed On: 023 12:52 PM Electr onical ly signed by: JANKI PRATER Thank you for referr ing [facility] Legall y authen ticate d by LUIS Harris MD 09-04 12:52: 29 CC'ed Logic: Orderi ng Provid er: NATHANIEL REY CC Provid er: AMBYOUNG LEELA TAFFAN Y Attend ing Provid er: NATHANIEL REY Referr ing Provid er: NATHANIEL REY Admitt ing Provid er: NATHANIEL [email or web address] [facility] (Radiology) [address] [place], [address], 09/09/2022 14:28:26 09/23/19 23 09/22/2022 vein extre m lwr lt duplx US [facility] [address] [place] [address] Phone: Fax: Name: ALETHA RANJANA Exam Date: : [birth year] Age 47 Gender : F Access ion: [id number] Physic angela: AMBURG EY, TAFFAN Y Facili ty: [facility] Facili ty HSV: Outpat ient Exam: VENOUS DUPLEX LOWER LEFT DUPLEX VENOUS SONOGR APHY OF THE LEFT LOWER EXTREM ITY HISTOR Y: Left leg pain and swelli ng FINDIN GS: Multip le transv erse and longit udinal scans were perfor med of the femoro poplit eal deep venous system , with augmen tation and compre ssion maneuv ers. Normal phasic flow was noted in the visual ized deep venous system . No intral uminal increa sed echoge nicity is noted to sugges t thromb us. There is normal compre ssion and augmen tation of the venous struct ures. No abnorm al venous collat erals are seen. IMPRES RYAN: No eviden ce of deep venous thromb osis of the left lower extrem ity. Dictat ed By: PING LOPEZ Transc ribed By: PING LOPEZ Transc ribed On: 023 4:32 PM Electr onical ly signed by: PING LOPEZ 023 Thank you for referr ing RANJANA WALTERS to [facility]. Legall y authen ticate d by POPE PING Johsnon DO 09-22 16:32: 05 CC'ed Logic: Orderi ng Provid er: AMBURG EY TAFFAN Y CC Provid er: AMBURG EY TAFFAN Y Attend ing Provid er: AMBURG EY TAFFAN Y Referr ing Provid er: AMBURG EY TAFFAN Y Admitt ing Provid er: AMBURG EY TAFFAN Y [facility] (Radiology) [address] [place], [address], 09/23/2022 08:33:44 09/16/19 24 09/16/2023 tib fib 2V lt [facility] [address] [facility] [place] [address] Phone: Fax: Name: RANJANA WALTERS Exam Date: 09/16/19 : [birth year] Age 48 years Gender : F Access ion: [id number] Physic angela: AMBURG EY, TAFFAN Y Facili ty: [facility] Facili ty HSV: Outpat ient Exam: TIB FIB 2V LT LEFT TIBIA/ FIBULA HISTOR Y: Leg pain. Audibl e pop during injury . FINDIN GS: 4 views show no eviden ce of an acute, displa guera fractu re or disloc ation of the visual ized bony kendra ecture . There are mild degene rative change s. There is soft tissue swelli ng. IMPRES RYAN: No acute bony abnorm ality. Given patien t histor y MRI may be benefi cial to assess for underl kiki Achill es injury . Films review ed , interp reted and dictat ed by Dr.Pop bermudez Transc ribed by Collin Pollock PA-C. Dictat ed By: PING LOPEZ Transc ribed By: PING LOPEZ Transc ribed On: 09/16/19 4:16 PM Electr onical ly signed by: PING LOPEZ 09/16/19 Thank you for referr ing RANJANA WALTERS to [facility]. Legall y authen ticate d by POPE PING Johnson DO 09-15 16:16: 11 CC'ed Logic: Orderi ng Provid er: AMBURG EY TAFFAN Y CC Provid er: AMBURG EY TAFFAN Y Attend ing Provid er: AMBURG EY TAFFAN Y Referr ing Provid er: AMBURG EY TAFFAN Y Admitt ing Provid er: AMBURG EY TAFFAN Y [facility] (Radiology) [address] [place], [address], 09/18/2023 08:29:34 09/16/19 24 09/16/2023 XR, ankle , 3 or more view [facility] [address] [place] [address] Phone: Fax: Name: RANJANA WALTERS Exam Date: 09/16/19 : [birth year] Age 48 years Gender : F Access ion: [id number] Physic angela: AMBURG EY, TAFFAN Y Facili ty: [facility] Facili ty HSV: Outpat ient Exam: ANKL 3V LT LEFT ANKLE HISTOR Y:Ankl e pain FINDIN GS: Audibl e pop during injury . FINDIN GS: 3 views show no eviden ce of an acute, displa guera fractu re or disloc ation of the visual ized bony kendra ecture . There are mild degene rative change s. There is soft tissue swelli ng. IMPRES RYAN: No acute bony abnorm ality. Given patien t histor y, MRI may be benefi cial to assess for underl kiki Achill es injury . Films review ed , interp reted and dictat ed by Dr.Pop bermudez Transc ribed by Collin Pollock PA-C. Dictat ed By: PING LOPEZ Transc ribed By: PING LOPEZ Transc ribed On: 09/16/19 4:16 PM Electr onical ly signed by: PING LOPEZ 09/16/19 Thank you for referr ing RANJANA WALTERS to [facility]. Legall y authen ticate d by POPE PING Johnson DO 09-15 16:16: 38 CC'ed Logic: Orderi ng Provid er: AMBURG EY TAFFAN Y CC Provid er: AMBURG EY TAFFAN Y Attend ing Provid er: AMBURG EY TAFFAN Y Referr ing Provid er: AMBURG EY TAFFAN Y Admitt ing Provid er: AMBURG EY TAFFAN Y [facility] (Radiology) [address] [place], [address], 09/18/2023 08:29:19 09/16/19 24 09/16/2023 XR, foot, 3 or more view [facility] [address] [place] [address] Phone: Fax: Name: RANJANA WALTERS Exam Date: 09/16/19 : [birth year] Age 48 years Gender : F Access ion: [id number] Physic angela: AMBURG EY, TAFFAN Y Facili ty: [facility] Facili ty HSV: Outpat ient Exam: FOOT LT 3V LEFT FOOT HISTOR Y: Foot pain FINDIN GS: Three views show no eviden ce of an acute, displa guera fractu re or disloc ation of the visual ized bony ekndra ecture . There are mild degene rative change s. IMPRES RYAN: No acute bony abnorm ality Films review ed , interp reted and dictat ed by Dr.Pop bermudez Transc ribed by Collin Pollock PA-C. Dictat ed By: PING LOPEZ Transc ribed By: PING LOPEZ Transc ribed On: 09/16/19 4:17 PM Electr onical ly signed by: PING LOPEZ 09/16/19 Thank you for referr ing JAMES WALTERSE to [facility]. Legall y authen ticate d by POPE PING Johnson DO 09-15 16:17: 00 CC'ed Logic: Orderi ng Provid er: AMBURG EY TAFFAN Y CC Provid er: AMBURG EY TAFFAN Y Attend ing Provid er: AMBURG EY TAFFAN Y Referr ing Provid er: AMBURG LEELA DIAS Y Admitt ing Provid er: ALFREDOURG LEELA DIAS Y valentinaburgleela [facility] (Radiology) [address] [place], [address], 09/18/2023 08:29:20 Result Notes Documentation Provider Name and Address Organization Details Recorded Time Xr, Ankle, 3 Or More View : [address] [place] [address] Name: RANJANA WALTERS Exam Date: 09/16/2023 : 1975 Age 48 years Gender: F Physician: BLAISE FRAGOSO Facility: [facility] Facility HSV: Outpatient Exam: ANKL 3V LT LEFT ANKLE HISTORY:Ankle pain FINDINGS: Audible pop during injury. FINDINGS: 3 views show no evidence of an acute, displaced fracture or dislocation of the visualized bony architecture. There are mild degenerative changes. There is soft tissue swelling. IMPRESSION: No acute bony abnormality. Given patient history, MRI may be beneficial to assess for underlying Achilles injury. Films reviewed , interpreted and dictated by Transcribed by Collin Pollock PA-C. Dictated By: PING LOPEZ Transcribed By: PING LOPEZ Transcribed On: 09/16/2023 4:16 PM Electronically signed by: PING LOPEZ 09/16/2023 Thank you for referring RANJANA WALTERS to [facility]. Legally authenticated by POPE PING Johnson DO 2023-09-16 16:16:38 CC'ed Logic: Ordering Provider: FOUZIA WELSH CC Provider: FOUZIA WELSH Attending Provider: FOUZIA WELSH Referring Provider: FOUZIA WELSH Admitting Provider: FOUZIA FRAGOSO NP [address] [place] [address], [place], [address], [facility] & [place] 09/18/2023 08:29:19 Xr, Foot, 3 Or More View : [address] [place] [address] Name: RANJANA WALTERS Exam Date: 09/16/2023 : 1975 Age 48 years Gender: F Physician: BLAISE FRAGOSO Facility: [facility] Facility HSV: Outpatient Exam: FOOT LT 3V LEFT FOOT HISTORY: Foot pain FINDINGS: Three views show no evidence of an acute, displaced fracture or dislocation of the visualized bony architecture. There are mild degenerative changes. IMPRESSION: No acute bony abnormality Films reviewed , interpreted and dictated by Transcribed by Collin Pollock PA-C. Dictated By: PING LOPEZ Transcribed By: PING LOPEZ Transcribed On: 09/16/2023 4:17 PM Electronically signed by: PING LOPEZ 09/16/2023 Thank you for referring RANJANA WALTERS to [facility]. Legally authenticated by POPE PING Johnson DO 2023-09-16 16:17:00 CC'ed Logic: Ordering Provider: FOUZIA WELSH CC Provider: FOUZIA WELSH Attending Provider: FOUZIA WELSH Referring Provider: FOUZIA WELSH Admitting Provider: FOUZIA FRAGOSO NP [address] [place] [address], [id number] [place] - [facility] - [place] & [place] 09/18/2023 08:29:20 Problems Name Problem SNOMED Code Status Onset Date Resolution Date Notes Provider Name and Address Organization Details Recorded Time Depressive disorder 26347703 Active 2021 René Hutchinso n null, [place] - [facility] - [place] & [place] 4 11:35:27 Anxiety 20773223 Active 2021 René Hutchinso n null, [place] [facility] & [place] 4 11:35:25 Prediabetes 907078294 Active 2021 René Hutchinso n null, [place] - [facility] - [place] & [place] 4 11:35:31 Hypothyroidism 86944035 Active 2021 René Hutchinso n null, [place] [facility] - [facility] & [place] 4 11:35:29 Injury of lower leg 618960725 Active 2023 Renéisrael Lozada n null, [facility] & [place] 4 09:05:53 Problem Notes None recorded. Procedures Surgical History Date Name Laterality Status Provider Name and Address Organization Details Recorded Time Tubal Ligation completed Not Available [facility] 0 12/30/2021 08:45:51 Carpal Tunnel Surgery completed Not Available [facility] 12/30/2021 08:45:51 Unlisted px dentalvlr strux completed Not Available [facility] 12/30/2021 08:45:51 Imaging Results None recorded. Procedure Notes None recorded. Medical Equipment None Reported. Allergies Allergen ID Allergen Name Allergen Category Reaction Reaction Severity Criticality Documentation Date Start Date Code Code System Note Provider Name and Address Organization Details Recorded Time 353131 metformin medicatio n Not available Not available Not available 08/02/2023 6809 RxNorm BLAISE FRAGOSO NP [address] [place] [address], [phone] & [place] 4 20:10:44 Medications Name Sig Start Date Stop Date Status Note LastModified by Organization Details LastModified Time atorvastati n 20 mg tablet TAKE ONE TABLET BY MOUTH ONCE a DAY 07/06 completed Not Available Not Available Not Available azithromyci n 250 mg tablet TAKE 2 TABLETS (500 MG) BY ORAL ROUTE ONCE DAILY FOR 1 DAY THEN 1 TABLET (250 MG) BY ORAL ROUTE ONCE DAILY FOR 4 DAYS 07/06 completed Not Available Not Available Not Available ibuprofen 800 mg tablet TAKE ONE TABLET BY MOUTH THREE TIMES DAILY NEEDED with food 07/06 completed Not Available Not Available Not Available meloxicam 15 mg tablet Take 1 tablet every day by oral route for 14 days. 03/31 completed Not Available Not Available Not Available tramadol 50 mg tablet 07/06 completed Not Available Not Available Not Available levothyroxi ne 25 mcg tablet take 1 tablet in the morning on an empty stomach once a day 09/15 completed Not Available Not Available Not Available levothyroxi ne 75 mcg tablet Take 1 tablet every day by oral route for 90 days. active Not Available Not Available No t Available Kenalog 40 mg/mL suspension for injection Take 40 mg every day by injection route as directed for 1 day. 03/31 completed Not Available Not Available Not Available methocarbam ol 750 mg tablet Take 1 tablet every day by oral route at bedtime for 14 days. 03/31 completed Not Available Not Available Not Available levothyroxi ne 50 mcg tablet Take 1 tablet every day by oral route for 90 days. 09/15 completed Not Available Not Available Not Available erythromyci n 5 mg/gram (0.5 %) eye ointment APPLY 1 CM RIBBON INTO THE LOWER CONJUNCTI AMY SAC(S) IN THE AFFECTED EYE(S) once daily at bedtime 02/25 completed Not Available Not Available Not Available oseltamivir 75 mg capsule Take 1 capsule twice a day by oral route. active Not Available Not Available No t Available polymyxin B sulfate 10,000 unit-trimet hoprim 1 mg/mL eye drops INSTILL 1 DROP INTO AFFECTED EYE(S) BY OPHTHALMI C ROUTE every 3 hours 02/25 completed Not Available Not Available Not Available dexamethaso ne sodium phosphate 4 mg/mL injection solution Inject 1 mL every day by intramusc ular route as directed for 1 day. 03/31 completed Not Available Not Available Not Available methylpredn isolone 4 mg tablets in a dose pack TAKE DIRECTED ON PACKAGE 07/06 completed Not Available Not Available Not Available losartan 50 mg-hydrochl orothiazide 12.5 mg tablet TAKE ONE TABLET BY MOUTH ONCE DAILY 2024 active Not Available Not Available Not Avai lable amoxicillin 875 mg-potassiu m clavulanate 125 mg tablet Take 1 tablet every 12 hours by oral route for 10 days. 07/06 completed Not Available Not Available Not Available bupropion HCl XL 150 mg 24 hr tablet, extended release Take 1 tablet every day by oral route for 90 days. 2024 active Not Available Not Available Not Avai lable nitrofurant oin monohydrate /macrocryst als 100 mg capsule Take 1 capsule every 12 hours by oral route for 5 days. 09/04 completed Not Available Not Available Not Available OneTouch Delica Lancets 33 gauge As directed 09/04 completed Not Available Not Available Not Available Jardiance 25 mg tablet Take 1 tablet every day by oral route for 90 days. 09/15 completed Not Available Not Available Not Available Ozempic 0.25 mg or 0.5 mg (2 mg/1.5 mL) subcutaneou s pen injector INJECT 0.5 MG UNDER THE SKIN WEEKLY 09/04 completed Not Available Not Available Not Available Ozempic 1 mg/dose (4 mg/3 mL) subcutaneou s pen injector Inject 1 mg every week by subcutane ous route for 90 days. active Not Available Not Available No t Available Mounjaro 5 mg/0.5 mL subcutaneou s pen injector Inject 5 mg every week by subcutane ous route. 01/09 completed Not Available Not Available Not Available Mounjaro 2.5 mg/0.5 mL subcutaneou s pen injector Inject by subcutane ous route for 28 days. 01/09 completed Not Available Not Available Not Available Ozempic 0.25 mg or 0.5 mg (2 mg/3 mL) subcutaneou s pen injector Inject 0.5 mg every week by subcutane ous route. 03/29 completed Not Available Not Available Not Available Vitals Date Recorded Body height Body mass index (BMI) Body weight Body temperature Oxygen saturation Oxygen saturation in Arterial blood by Pulse oximetry Heart rate Respiratory rate Systolic And Diastolic Provider Name and Address Organization Details Last Updated DateTime 5 163.83 cm 52.1 kg/m2 664974. 45 g 97.5 [degF] 98 % 98 % 75 /min 16 /min 124/76 mm[Hg] Татьяна Medrano [place] - LPNT [facility] & [place] 5 10:41:06 Date Recorded Body height Body mass index (BMI) Body weight Body temperature Oxygen saturation Oxygen saturation in Arterial blood by Pulse oximetry Heart rate Systolic And Diastolic Provider Name and Address Organization Details Last Updated DateTime 4 163.83 cm 52.2 kg/m2 099614. 04 g 98 [degF] 98 % 98 % 79 /min 144/70 mm[Hg] René oliver [place] - LPNT [facility] & [place] 4 11:35:12 Date Recorded Body height Body mass index (BMI) Body weight Body temperature Oxygen saturation Oxygen saturation in Arterial blood by Pulse oximetry Heart rate Systolic And Diastolic Provider Name and Address Organization Details Last Updated DateTime 4 163.83 cm 51.2 kg/m2 231619. 49 g 97.8 [degF] 97 % 97 % 71 /min 118/75 mm[Hg] René Lozada benito [facility] & [place] 4 14:41:59 Date Recorded Body height Body mass index (BMI) Body weight Body temperature Oxygen saturation Oxygen saturation in Arterial blood by Pulse oximetry Heart rate Respiratory rate Systolic And Diastolic Provider Name and Address Organization Details Last Updated DateTime 3 162.56 cm 48.9 kg/m2 392207. 83 g 97.2 [degF] 99 % 99 % 62 /min 18 /min 132/80 mm[Hg] Jonah Soriano [facility] & [place] 3 14:34:05 Date Recorded Body height Body mass index (BMI) Body weight Body temperature Oxygen saturation Oxygen saturation in Arterial blood by Pulse oximetry Heart rate Systolic And Diastolic Provider Name and Address Organization Details Last Updated DateTime 4 163.83 cm 51.2 kg/m2 752562. 49 g 98 [degF] 91 % 91 % 68 /min 138/62 mm[Hg] BLAISE FRAGOSO NP [address] [place] [address], [address] , [facility] & [place] 4 08:40:35 Social History Question Answer Notes LastModified by [employer] Details LastModified Time Tobacco Smoking Status Never Smoker Ashely Cinthya null, [facility] & [place] 12/30/2021 08:38:54 What Is Your Level Of Caffeine Consumption? None Information not available 02/25/2022 What Was The Date Of Your Most Recent Tobacco Screening? 09/16/2023 [email or web address] Information not available 09/16/2023 Sex: Unknown Functional Status Question Answer Note LastModified by [employer] Details LastModified Time Do you use any illicit or recreational drugs? No Information not available 12/30/2021 Do you or have you ever used any other forms of tobacco or nicotine? No [email or web address] Information not available 12/30/2021 What is your level of alcohol consumption? None Information not available 12/30/2021 Mental Status None recorded. Family History Relationship Description Onset Age of this Age Resolved Age Notes LastModified by Organization Details LastModified Time Mother Hypothyroidi sm [email or web address] Not available 2024 10:31:33 Mother Diabetes mellitus [email or web address] Not available 2024 10:31:33 Mother Essential hypertension [email or web address] Not available 10:31:33 Father Sepsis Deceas ed [email or web address] Not available 07/06/2024 10:31:33 Father Essential hypertension [email or web address] Not available 10:31:33 Sister Diabetes mellitus [email or web address] Not available 2024 10:31:33 Daughter Seizure disorder [email or web address] Not available 2021 08:38:37 Medical History Condition Response Depression Y Anxiety Disorder Y Vision or Eye Problems Y Hypothyroidism Y Gynecological HistoryNo gynecological history recorded. Obstetrics History GPAL:G 0 P 0 0 0 0 Past Encounters Encounter ID Performer Location Encounter Start Date Encounter Closed Date Diagnosis/Indication Diagnosis SNOMED-CT Code Diagnosis ICD10 Code Diagnosis IMO Codes Diagnosis Note [id number] [address] 12/30/2021 14:32:45 12/30/2021 15:00:53 Hordeolum externum of upper eyelid of left eye 2755041650 14694 H00.014 warm compressad vised to make appt with eye doctorER if any urgent signs or symptoms arise [id number] ROSHNI F[address] [address] 02/25/2022 09:23:17 02/25/2022 09:59:49 Hypothyroidism 01931824 E03.9 The goal is to maintain TSH level between 0.5 and 2.5 mu/L and FT4 within normal range. lab work obtained by Sandeep at 958 am Obesity 451114940 E66.9 continue lifestyle changes Type 2 juan diego betes mellitus 38548323 E11.65 take medication s as prescribed awaiting [id number] forced diet and lifestyle changesdai ly foot checkyearl y eye examfollow up every 3 months Low back pain 364023182 M54.50 restheatin g pad4/40 given todayf/u if symptoms persistedu cated on red flag signs or symptoms [id number] BLAISE FRAGOSO NP [address] [address] 03/31/2022 09:47:16 03/31/2022 10:12:33 Abnormal vaginal bleeding 212254713 N93.9 f/u in 2 weeks for papawaitin g USER if any urgent signs or symptoms ariseCB normal [id number] BLAISE FRAGOSO NP [address] [address] 1 04/28/2022 11:41:03 04/28/2022 12:13:07 Recurrent urinary tract infection 864351007 N39.0 [id number] Krissy Martinez MD [address] [place] [address] 09/04/2022 11:04:38 09/04/2022 13:32:36 Contusion of right thumb 3720618569 4806369 S60.011A Contusion. Splint placed. We will check x-ray. If x-ray shows fracture will refer to Orthopedic s. If negative recommend wearing splint for 2-3 days then removal. Recommend ice. Contusion of lower back 703139688 S30.0XXA No obvious deformity or injury consistent with possible fractureWe will prescribe ibuprofen. [id number] BLAISE FRAGOSO NP [address] [place] [address] 09/22/2022 14:03:56 09/22/2022 15:59:53 Pain in left lower limb 009038987 M79.605 r/o DVT; collaborat ed with central scheduling and hospital radiology to get patient in ASAPER if any urgent signs or symptoms arise Swelling of lower leg 44 9004212 R22.42 r/o DVT; collaborat ed with central scheduling and hospital radiology to get patient in ASAPER if any urgent signs or symptoms arise Type 2 juan diego betes mellitus 17232514 E11.65 take medication s as prescribed awaiting abaq3wbrdg forced diet and lifestyle changesdai ly foot checkyearl y eye examfollow up every 3 months Cramp in lower limb 4499 37290 R25.2 awaiting lab work Hypothyroidism 56936981 E03.9 The goal is to maintain TSH level between 0.5 and 2.5 mu/L and FT4 within normal range.rech deyvi lab work todaytake medication first thing in AM on empty stomach lab work obtained by matthew, tolerated well, in [id number] Pascual Hay MD [address] [place] [address] 07/29/2023 11:23:10 07/29/2023 11:55:13 Serum thyroid stimulating hormone level outside reference range 406950825 R89.1 recheck todaynot taking any medication consistent lyrecheck lab work todaytake medication first thing in AM on empty stomach Prediabetes 294430254 R7 3.03 hgba1c last checked and was 6.0wasnt able to get ozempictak e medication s as prescribed awaiting egny8vmhfw forced diet and lifestyle changesdai ly foot checkyearl y eye examfollow up every 3 months Mixed anxi ety and depressive disorder 705742391 F41.8 denies SI/HIdiscu ssed starting bupropionf /u in 4 weeks [id number] BLAISE FRAGOSO NP [address] [place] [address] 09/16/2023 14:27:50 09/21/2023 08:17:43 Injury of lower leg 645539982 S89.90XA ANNMARIElikelhubert needs MRI but we will repeat x-raywill need walking boot an ortho referral, awaiting x-ray Localized swelling of left lower leg 2467870396 9517845 R22.42 Pain of le ft ankle joint 3044173581 5873225 M25.572 Pain in left foot 568721 5218 49028 M79.672 Unable to weight-bear on left leg 521871937 R26.89 [id number] BLAISE FRAGOSO NP [address] [place] [address] 10/26/2023 08:18:09 10/26/2023 08:51:28 Mixed hyperlipidemia 661123598 E78.2 Patient advised to exercise, eat a prudent diet and lose weight as appropriat e. Mixed anxi ety and depressive disorder 702738724 F41.8 denies SI/Sterlingr olled Acquired hypothyroidism 265195880 E03.9 recheck lab work todaytake medication first thing in AM on empty stomach Essential hypertension 49291397 I10 educated on goal of less than 130/90advi sed low sodium diet, healthy lifestyle including exercise as ablecontin ue current medication regimenER if any symptoms such as chest pain, shortness of breath Type 2 juan diego betes mellitus 18220080 E11.65 take medication s as prescribed awaiting aosx7bqeeq forced diet and lifestyle changesdai ly foot checkyearl y eye examfollow up every 3 months Left Achil les tendinitis 4413845246 56494 M76.62 unable to afford boot, MRI, or ortho consultcon tinues to be symptomati c pain, altered ambulation , swellingun able to stay off of because she has to work Acute uppe r respiratory infection 42012497 J06.9 Patient presented with symptoms of upper respirator y infection. Advised to drink plenty of fluids, run a cool-mist humidifier in room at night, gargle salt water for sore throat, and get plenty of rest. Patient should avoid over-exert ion and reduce exposure to irritants such as smoke, cold, dry air, and dust. Treatment currently involves symptomati c relief. Patient may take acetaminop hen or ibuprofen as directed to reduce fever and body aches. Antihistam ine and decongesta nt usage was discussed and recommenda tions made. Patient understood these instructio ns and will follow up in the office in 10 days to 2 weeks if symptoms not improving. [id number] Pascual Hay MD [facility] [address] [place] [address] 07/06/2024 10:31:24 07/06/2024 10:59:54 Respiratory tract congestion and cough 461858343 R05.8 53714858 Influenza caused by Influenza A virus 154054108 J10.1 [id number] patient tested positive for influenza type A. We have discussed over-the-c ounter treatments for symptomati c relief. I will also call in a prescripti on for some Tamiflu. Health Concerns Section Related Observation LastModified by Organization Detai ls LastModified Time None Recorded Concern Status LastModified by Organization Details LastModified Time None Recorded Advance Directives Directive None Recorded Payers Insurance Date Sequence Insurance Name Policy Number Policy Spaulding Covered Member ID Spaulding Member ID Guarantor Name 09/27/2024 2 MEDICAID-[facility] - FFS/TRADITIO NAL Ranjana Walters [id number] Ranjana Walters 06/20/2024 1 [place] [id number] Ranjana Walters [id number] Ranjana Walters 07/06/2024 1 [place] [id number] Ranjana Walters [id number] Ranjana Walters 06/20/2024 1 [employer] (PPO) Ranjana Walters [id number] Ranjana Walters 06/20/2024 2 [employer] (H[place]) Ranjana Walters [id number] Ranjana Walters Notes Date Note Type Note Provider Name and Address Organization Details Recorded Time 09/22/2022 text/html ROS as noted in the HPI 47 yr old female who presents with 2 weeks of swollen left leg then knot appeared on back of leg, also having spasms in muscles, leg pain. Denies any known injury. Progressively getting worse. No relief with home treatment of OTC medications or elevation.Continues to have pain in thumb after working in yard but slow improvementBlood sugar running 90 to 140. Denies episodes of hyper or hypoglycemia. BLAISE FRAGOSO NP [address] [place] [address], [address], [facility] [place] & [place] 09/30/2022 12:51:34 07/29/2023 text/html ROS as noted in the HPI 47-year-old female who presents for follow-up. 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 Her daughter is also sick. And lost his job. Along with the stressors she gets down about her weight. No matter what she does lifestyle changes she is unable to lose weight. She did stop drinking soda 3 weeks ago. Has not had her labs checked since September 2022. She has 3 medications unsure which pills these are that she takes occasionally but does not take any medications consistently right now. Does not check glucose. Denies any chest pain shortness of breath. BLAISE FRAGOSO NP [address] [place], [address], [facility] & [place] 07/29/2023 11:51:50 09/16/2023 text/html ROS as noted in the [facility] 48-year-old female who presents with left lower leg, ankle and foot pain. She has been unable to bear weight, limping gait since the 08 of September. She was playing volleyball and jumped up and came down onherd leg with immediate pain. Went to the ER and x-rays were performed but normal. BLAISE FRAGOSO NP [address] [place], [address], [facility] & [place] 09/18/2023 12:04:37 10/26/2023 text/html ROS as noted in the [facility] 48-year-old female who presents for follow-up. She continues to walk with a limp, constant left leg and foot pain after injury. She was unable to afford the boot or the MRI or the appointment with Ortho so she has been taking ibuprofen, more than she should be. Taking all medications as prescribed. Denies any chest pain, shortness of breath, swelling. Having regular bowel movements normal urination. Denies any wounds or ulcers on her feet. She has had a cough for over a week, the last week it has gotten worse and harsher cough. Denies any fever, chills. Nonsmoker. But feels like she has had a cough ever since having COVID. BLAISE FRAGOSO NP [address] [place], [address], [facility] [place] 10/26/2023 08:58:33 07/06/2024 text/html ROS as noted in the [facility] SDSpatient presents with a 1 day history of flu-like symptoms. They include fever, chilling, general malaise, Pascual Hay MD [address] [place] [address], [place], [address], [facility] [place] & [place] 07/06/2024 11:03:17 OBGyn Episode No OBEpisode recorded.
--- OUTSIDE RECORDS SUMMARY | 2025-01-08 22:07 | XMS_ITS | Patient Health Record ---
Author Organization [facility] Address [address] [facility] [address] [place] [address] Care Team Providers Care Griddle Attendant Name Role Phone Tamara Aguilera Unavailable [phone] Reason For Referral No Information Problems Problem Type SNOMED Code ICD Code Onset Dates Problem Status W/U Status Risk Notes Problem Menstrual problem ([id number]) Abnormal menses (N92.6) 9 Active confirmed Irregular menses Plan Of Treatment No Information Medical (General) History Medical History History ICD Code Bleeding Disorder UTI's SOCIAL HX: Patient has never smoked. Passive Smoke: Y Alcohol Use: N Drug Use: N HIV/High Risk: N Regular Exercise: N SOCIAL HX: Patient has never smoked. Passive Smoke: Y Alcohol Use: N Drug Use: N HIV/High Risk: N Regular Exercise: N MENSTR FLOW: Heavy POTASSIUM TABLET LASIX TABLET LEVOXYL TABLET Surgical History Surgery Date(Month/Year) Tubal Ligation 2005 Carpal Tunnel x2 &
--- NOTE | 2025-01-08 22:10 | HMH.EDGENADL ---
Discharge Plan Disposition Patient Disposition: Home, Self-Care Condition: Good Prescriptions Prescriptions: New benzonatate 100 mg capsule 100 mg PO TID Qty: 90 0RF No Action hydrochlorothiazide 25 mg tablet 25 mg PO DAILY Qty: 30 2RF levothyroxine [Synthroid] 25 mcg tablet 25 mcg PO QDAY Qty: 90 0RF cholecalciferol (vitamin D3) 1,250 mcg (50,000 unit) tablet 1,250 mcg PO WEEKLY Qty: 7 1RF cholecalciferol (vitamin D3) 50 mcg (2,000 unit) capsule 50 mcg PO DAILY 30 Days Qty: 30 3RF metformin 500 mg tablet 500 mg PO BID Qty: 30 2RF Rx Instructions: 500mg QD x 5 days 500mg BID (DME) blood-glucose meter [Blood Glucose Monitoring] Kit See Rx Instructions .ROUTE .MEDSUPPLY Qty: 1 0RF Rx Instructions: As directed (DME) Blood Glucose Test Strip See Rx Instructions .ROUTE .MEDSUPPLY Qty: 100 0RF Rx Instructions: As directed aspirin 81 mg tablet,delayed release (DR/EC) 81 mg PO DAILY Qty: 30 2RF (DME) lancets [Droplet Lancets] 30 gauge misc See Rx Instructions .ROUTE .MEDSUPPLY Qty: 100 1RF Rx Instructions: As directed Referrals Follow up/Referrals: Leighann Galloway APRN [Primary Care Provider, Medical] - See instructions Activity Restrictions/Add. Instructions Additional Instructions/Restrictions: You can continue taking Tylenol and Motrin at home and I will send you with Zofran as needed. We will call you if your respiratory swab is positive. You can take Mucinex or other [id number] medications for your upper respiratory symptoms. I will send you with Cherelle Meyer for your cough. Clinical Impressions Clinical Impression: Acute upper respiratory infection Stand Alone Forms Stand Alone Forms: Work/School Release Print Language Print Language: Sinhala Discharge ED Provider: Debbie Santiago Adult HPI General Chief complaint: Upper Respiratory Infection Stated complaint: ear pain, sore throat, cough Time Seen by Provider: 01/08/25 22:10 History of Present Illness HPI narrative: Patient is a 49-year-old female with no significant past medical history who presented to the emergency department with cough, sore throat, rhinorrhea and mild headache. Patient denies any neck pain or decreased ability to move her neck. Patient denies any severe acute onset headache. Patient denies any fevers at home. Patient denies any shortness of breath or chest pain. Patient denies any abdominal pain. Patient denies any nausea vomiting or diarrhea. Patient does not take any daily medications. Patient is not me know compromised. Related Data Previous Rx's ?Medication ?Instructions ?Recorded levothyroxine 25 mcg tablet 25 mcg PO QDAY #90 tabs 12/06/18 (Synthroid) hydrochlorothiazide 25 mg tablet 25 mg PO DAILY #30 tabs 08/28/20 aspirin 81 mg tablet,delayed 81 mg PO DAILY #30 tabs 09/03/20 release blood sugar diagnostic (Blood #100 ea 09/03/20 Glucose Test strips) blood-glucose meter (Blood Glucose #1 ea 09/03/20 Monitoring kit) cholecalciferol (vitamin D3) 1,250 1,250 mcg PO WEEKLY #7 tabs 09/03/20 mcg (50,000 unit) tablet cholecalciferol (vitamin D3) 50 50 mcg PO DAILY 30 days #30 caps 09/03/20 mcg (2,000 unit) capsule metformin 500 mg tablet 500 mg PO BID #30 tabs 09/03/20 lancets 30 gauge (Droplet Lancets) #100 ea 05/22/21 benzonatate 100 mg capsule 100 mg PO TID #90 caps 01/08/25 Allergies Allergy/AdvReac Type Severity Reaction Status Date / Time amitriptyline AdvReac itching Verified 01/08/25 22:56 [facility] Disclaimer: The information contained in this section may have been updated after the patient was seen, as this information can be updated by other users. Medical History (Updated 01/08/25 @ 23:12 by Debbie Santiago DO) Right upper quadrant abdominal pain Edema Thoracic back pain Hypothyroidism Social History Smoking Status: Never smoker alcohol intake: never substance use type: denies use current occupational status: employed Travel in the last 8 weeks?: None household members: spouse and children housing: house Have you lived/traveled outside US in past 30 days?: No Contact w/someone who lives/traveled outside US past 30 days?: No Exposure to someone with infectious disease in past 14 days?: No Do you have a fever (greater than 100.4 F or 38 C)?: No Have you tested positive for COVID-19?: No Exposed to someone with COVID-19 in past 14 days?: No Do you have a sore throat?: Yes Do you have a cough?: Yes Do you have any weakness?: Yes Do you have any diarrhea?: No Are you experiencing any unusual bleeding?: No Do you have any muscle aches/pain?: Yes Do you have any abdominal pain?: No Are you experiencing loss of taste or smell?: No Other Medical History Have you received the Flu Vaccine for this season: No Have you received the Pneumonia Vaccine: No ROS Obtained: Yes All systems reviewed & no additional complaints except as documented and Yes Systems reviewed as appropriate & no additional complaints except as documented Physical Exam General General appearance: alert and in no apparent distress Head Head exam: atraumatic, normocephalic and normal inspection Eye Eye exam: Present normal appearance, PERRL and EOMI; Absent scleral icterus ENT ENT exam: Present normal exam, normal oropharynx, mucous membranes moist, TM's normal bilaterally and normal external ear exam Neck Neck exam: Present normal inspection, full ROM and other; Absent tenderness or meningismus Chest Chest inspection: Present normal inspection and symmetric chest wall rise Respiratory Respiratory exam: Present normal lung sounds bilaterally; Absent respiratory distress or wheezes Cardiovascular Cardiovascular exam: Present regular rate, normal rhythm and normal heart sounds Abdominal Exam Abdominal exam: Present soft and distention; Absent tenderness, guarding or rebound Extremities Exam Extremities exam: Present normal inspection and full ROM Back Exam Back exam: Present normal inspection and full ROM Neurological Exam Neurological exam: Present alert, oriented X3, normal gait and reflexes normal; Absent motor sensory deficit Psychiatric Psychiatric exam: Present normal affect and normal mood Skin Skin exam: Present warm and dry Medical Decision Making Medical Records Screening: Per USPSTF and CDC recommendations, given the prevalence of disease in our region, it is our hospital?s policy to screen for HIV and viral Hepatitis for all patients aged 18 and over and those with ongoing risk factors. Jay Inquiry Pt receiving controlled substance: No Vital Signs: 01/08/25 22:47 01/08/25 23:20 Temperature 98.5 F 98.7 F Temperature Source Oral Pulse Rate 81 Pulse Rate [Left] 75 Respiratory Rate 18 18 Blood Pressure 137/77 Blood Pressure [Right Arm] 149/88 H Blood Pressure Mean [Right Arm] 108 Blood Pressure Source Automatic Cuff Blood Pressure Source [Right Arm] Automatic Cuff Blood Pressure Position Sitting Blood Pressure Position [Right Arm] Sitting 02 Sat by Pulse Oximetry 96 Oxygen Delivery Method Room Air Room Air Lab Data Lab results reviewed: Yes I reviewed the patient's lab results. Lab Results 01/08/25 22:44: SARS-CoV-2 (PCR) Not detected, Influenza Type A (PCR) Not detected, Influenza Type B (PCR) Not detected, RSV (PCR) Not detected, Rhinovirus (PCR) Detected A Orders (Tests/Meds): ED MEDICATIONS Discontinued Medications Generic Name Dose Route Start Last Admin Trade Name Freq PRN Reason Stop Dose Admin Acetaminophen 500 mg 01/08/25 22:43 01/08/25 23:10 Acetaminophen 500mg Tab PO 01/08/25 22:44 500 mg ONCE ONE Administration Acetaminophen/Butalbital/Caffeine 1 each 01/08/25 22:43 01/08/25 23:09 Butalb/Acetaminophen/Caffeine 50mg/325mg/40mg Tab PO 02/07/25 22:42 1 each Q6HP PRN Administration Headache Ibuprofen 800 mg 01/08/25 22:44 01/08/25 23:09 Ibuprofen 800 Mg Tablet PO 01/08/25 22:45 800 mg ONCE ONE Administration ORDERS Category Date Time Status Mini Respiratory Panel Stat Lab 01/08/25 22:44 Completed Medical Decision Narrative: Patient is an otherwise healthy 49-year-old female who presented to the emergency department with mild headache, cough congestion sore throat. On arrival, patient was hemodynamically stable with unremarkable vital signs. Differential includes but not limited to:Tension headache, migraine headache, viral upper respiratory infection, strep pharyngitis, viral pharyngitis, amongst others. On exam, patient was very well-appearing, patient had no meningismus, patient had full range of motion of her neck. Patient's tympanic membranes were unremarkable. Patient's oropharynx was normal. Patient's pulmonary exam was unremarkable with bilateral breath sounds. Patient was in no respiratory distress. Patient had some rhinorrhea on exam. Given patient's mild headache she was given Tylenol Motrin and Fioricet. A respiratory swab was sent. No evidence of strep pharyngitis at this time. Patient reported improvement in her headache after the medications. No respiratory concerns. No chest pain or other complaints at this time therefore further workup was not felt to be indicated as this was day 1 of patient's illness. At this time I recommended patient to take Tylenol and Motrin at home patient can take [id number] medication for her likely upper respiratory infection. Patient was noted that she would be called if her respiratory swab came back positive. Patient was recommended to return to the emergency department if she had any acute or worsening shortness of breath. Critical Care Critical Care Time Critical Care Time: No
[2025-01-08 22:47] VITALS: BP 149/88; PULSE 75; RESP 18; TEMP 36.9; O2SAT 96; BMI 50.5
[2025-01-08 22:47] LABS: Coronavirus 19, PCR Not Detected (NotDetected); Influenza A, PCR Not Detected (NotDetected); Influenza B, PCR Not Detected (NotDetected)
[2025-01-08] MEDS: BUTALB/ACETAMINOPHEN/CAFFEINE 50MG/325MG/40MG TAB 1 EACH PO (23:09)
[2025-01-08] MEDS: IBUPROFEN 800 MG TABLET PO (23:09)
[2025-01-08] MEDS: ACETAMINOPHEN 500MG TAB 500 MG PO (23:10)
[2025-01-08 23:20] VITALS: BP 137/77; PULSE 81; RESP 18; TEMP 37.1; O2SAT 97
== END 2025-01-08 23:21 | disposition home or self-care (01) ==
PROVIDERS: Emergency Provider Student in an Organized Health Care Education/Training Program; PCP Nurse Practitioner Family
DX: R51.9 Headache, unspecified (principal); J06.9 Acute upper respiratory infection, unspecified; B34.8 Other viral infections of unspecified site
CPT/HCPCS: 87631; 99282; 99283

== ENCOUNTER 2025-03-11 17:00 | Emergency (ER) | payer BC, SELFPAY ==
--- OUTSIDE RECORDS SUMMARY | 2025-03-06 06:34 | XMS_ITS | Continuity of Care Document ---
Author Organization [facility] Phone Care Team Providers Care Aerospace Technician Name Role Phone BLAISE FRAGOSO Admitting [phone] BLAISE FRAGOSO Primary Care [phone] BLAISE FRAGOSO Unavailable BLAISE FRAGOSO Primary Attending [phone] ALLERGIES AND ADVERSE REACTIONS ALLERGIES AND ADVERSE REACTIONS Code System Allergy Substance Adverse Reaction Date Reaction (Severity) Comment Status Reported By Updated By No Known Allergies [id number] on September 10, 2023 2:38:32 AM [facility] FAMILY HISTORY RELATION: Father Status: Cause of : Appendicitis Age at : 63 SNOMED-CT Diagnosis Age At Onset [id number] Essential hypertension RELATION: Mother Status: LIVING SNOMED-CT Diagnosis Age At Onset [id number] Chronic obstructive lung disease [id number] Asthma [id number] Essential hypertension RESULTS Patient: ALETHA Flores Date of : [birth year] LABORATORY RESULTS Information is not available LABORATORY NARRATIVE RESULTS Information is not available RADIOLOGY RESULTS ORDER 100: HAND RT 3V (LOINC : [id number]) ORDER DATE: March 03, 2025 9:22:00 PM [facility] PERFORMING LAB: [address] [id number] Final Result Date: March 03, 2025 9:28:37 PM [address] [place] [address] Name: RON POMPA Exam Date: 03/03/2025 : 1975 Age 49 years Gender: F Physician: BLAISE FRAGOSO Facility: [facility] Facility HSV: Outpatient Exam: HAND RT 3V XR HAND 3 OR MORE VIEWS RIGHT Reason For Study: Arthralgia of right hand COMPARISON:September 04, 2022 TECHNIQUE: Three views of the right hand were obtained. FINDINGS There is mild DJD in the radiocarpal joint, first carpometacarpal joint and minimal degenerative changes in the interphalangeal joints and MCP joints. No radiopaque foreign body detected. No significant soft tissue calcifications. There is swelling over the thenar region. IMPRESSION: Mild DJD. Electronically signed by: Ping Blanco MD 03/03/2025 04:51 PM [facility] Dictated By: PING BLANCO Transcribed By: Transcribed On: 03/03/2025 4:28 PM Electronically signed by: PING BLANCO 03/03/2025 Thank you for referring RON POMPA to [facility]. Legally authenticated by BELLA FENG MD 2025-03-03 16:28:37 PATHOLOGY NARRATIVE RESULTS Information is not available MICROBIOLOGY RESULTS No Micro Labs/Results Exist for Patient BLOOD ADMIN RESULTS Information is not available MEDICATIONS HOME MEDICATIONS Status RXNORM NDC Medication Dose Route Frequency Dates Comments Reported By Updated By Drug Treatment Unknown DISCHARGE MEDICATIONS Status RXNORM NDC Medication Dose Route Frequency Dates Dis pense Data Comments Physician Updated By No Discharge Medication Info rmation Available INPATIENT MEDICATIONS Status RXNORM NDC Medication Dose Route Frequency Rat e Quantity Dates Indication Dispense Data Comments Physician Updated By No Inpatient Medication Info rmation Available SOCIAL HISTORY SOCIAL HISTORY - Smoking Status SNOMED-CT Social History Element Description Effective Dates Offered Cessation Comment Updated By [id number] Historical Tobacco smoking status Never Smoked Not Applicable [id number] on January 22, 2015 3:01:11 PM [facility] SOCIAL HISTORY - Gender Sex: Female SOCIAL HISTORY - Status : status i nformation is not available Intention in Next Year: intention information is not available SOCIAL HISTORY - Assessments Code System Description Status Date Value of Assessment Updated By Comment Assessment Information is no t available SOCIAL HISTORY - [place] Affiliation [place] information is not av ailable SOCIAL HISTORY - Legal Sex Legal Sex information is not available SOCIAL HISTORY - Sexual Behavior Sexual Orientation Gender Identity SNOMED-CT Description SNO MED -CT Description Activity Level No of Partners Partner Type UpdatedBy Information is not available SOCIAL HISTORY - Occupation Occupation information is no t available HEALTH CONCERNS Problems Concern Status Health Concern problem infor mation not available. Smoking Status Status Years Used Consumed packs p er day Health Concern smoking histo ry information not available. Family History Concern Status Health Concern family histor y information not available. ENCOUNTERS ENCOUNTER INFORMATION Reason for Visit M25.541 Admission March 03, 2025 9:05:[address] [id number] Discharge March 03, 2025 9:05:00 PM [facility] DISCHARGED TO HOME OR SELF CARE ENCOUNTER DIAGNOSES Notes information is not romario ilable. Code System Diagnosis Onset Date Diagnosis information is not available. ABSTRACT DIAGNOSES Code System Diagnosis Updated By Abatement Date M25.541 ICD10 PAIN IN JOINTS OF RIGHT HAND [id number] on March 06, 2025 11:34:02 AM [facility] Z88.8 ICD10 ALLERGY STATUS T O OTHER DRUGS, MEDICAMENTS AND BIOLOGICAL SUBSTANCES [id number] on March 06, 2025 11:34:02 AM [facility] M19.041 ICD10 PRIMARY OSTEOART HRITIS, RIGHT HAND [id number] on March 06, 2025 11:34:02 AM [facility] Z88.8 ICD10 ALLERGY STATUS T O OTHER DRUGS, MEDICAMENTS AND BIOLOGICAL SUBSTANCES [id number] on March 06, 2025 11:34:02 AM [facility] CARE TEAM Care Aerospace Technician Role BLAISE FRAGOSO Admitting BLAISE FRAGOSO Primary Care BLAISE FRAGOSO Referring [facility] FOUZIA Primary Attending CARE TEAM CARE intelligence operations Role on Team Location Telecom Status Start Date End Samuel e Updated By FOUZIA FIELDS PCP normal March 03, 2025 5:00:00 AM [facility] March 03, 2025 9:05:00 PM [facility] [id number] on March 03, 2025 9:06:27 PM [facility] FOUZIA FIELDS Referring normal March 03, 2025 5:00:00 AM [facility] March 03, 2025 9:05:00 PM [facility] [id number] on March 03, 2025 9:06:27 PM [facility] FOUZIA FIELDS Attending normal March 03, 2025 5:00:00 AM [facility] March 03, 2025 9:05:00 PM [facility] [id number] on March 03, 2025 9:06:27 PM [facility] FOUZIA FIELDS Admitting normal March 03, 2025 5:00:00 AM [facility] March 03, 2025 9:05:00 PM [facility] [id number] on March 03, 2025 9:06:27 PM [facility]
[2025-03-11] VITALS (21 sets, daily range): BP systolic 116–150; BP diastolic 68–100; PULSE 60–87; RESP 18–20; TEMP 37.1; O2SAT 95–100; BMI 46.6
--- NOTE | 2025-03-11 17:29 | HMH.EDGENADL ---
Discharge Plan Disposition Patient Disposition: Home, Self-Care Condition: Good Prescriptions Prescriptions: New methocarbamol 750 mg tablet 750 mg PO Q8H Qty: 90 0RF ibuprofen 800 mg tablet 800 mg PO Q8H PRN (Reason: pain) Qty: 30 0RF No Action hydrochlorothiazide 25 mg tablet 25 mg PO DAILY Qty: 30 2RF levothyroxine [Synthroid] 25 mcg tablet 25 mcg PO QDAY Qty: 90 0RF cholecalciferol (vitamin D3) 1,250 mcg (50,000 unit) tablet 1,250 mcg PO WEEKLY Qty: 7 1RF cholecalciferol (vitamin D3) 50 mcg (2,000 unit) capsule 50 mcg PO DAILY 30 Days Qty: 30 3RF metformin 500 mg tablet 500 mg PO BID Qty: 30 2RF Rx Instructions: 500mg QD x 5 days 500mg BID (DME) blood-glucose meter [Blood Glucose Monitoring] Kit See Rx Instructions .ROUTE .MEDSUPPLY Qty: 1 0RF Rx Instructions: As directed (DME) Blood Glucose Test Strip See Rx Instructions .ROUTE .MEDSUPPLY Qty: 100 0RF Rx Instructions: As directed aspirin 81 mg tablet,delayed release (DR/EC) 81 mg PO DAILY Qty: 30 2RF (DME) lancets [Droplet Lancets] 30 gauge misc See Rx Instructions .ROUTE .MEDSUPPLY Qty: 100 1RF Rx Instructions: As directed benzonatate 100 mg capsule 100 mg PO TID Qty: 90 0RF Referrals Follow up/Referrals: Porfirio Richard DO [Staff Physician, Orthopedics] - See instructions Leighann Galloway APRN [Primary Care Provider, Medical] - See instructions Activity Restrictions/Add. Instructions Additional Instructions/Restrictions: Can take Tylenol, ibuprofen as well as a muscle relaxer. You can take 800 mg of ibuprofen 3 times a day and you can take the muscle relaxer 3 times a day as well. You can add in Tylenol as well if you would like. You cannot take more than 4000 mg of Tylenol a day. I sent you with a referral to Dr. Richard who is our orthopedic doctor if you have continued pain, you will need to call them to schedule an appointment. You can use a sling for comfort but try to mobilize the arm is much as possible. You can use heat and ice as comfort. Clinical Impressions Clinical Impression: Elbow pain, left Stand Alone Forms Stand Alone Forms: Work/School Release Print Language Print Language: Maltese Discharge ED Provider: Debbie Santiago Adult HPI General Chief complaint: PAIN Stated complaint: left arm pain and knot near elbow Time Seen by Provider: 03/11/25 17:17 Mode of Arrival: Ambulatory Source of Information: Patient Description of Symptoms (Recalled from ER Triage Doc. by RN): marcella rpesents for left elbow/arm pain that is 01/20. she states there is a know aorund the bend of her arm that is nw wrapping around to her elbow. she also had chest pain initially but hasnt had any since. she saw her PCP 3 weeks ago and they only prescribed her a steroid and sent her home. she also has pain in her right thumb. xrays were done at her PCP and were negative. History of Present Illness HPI narrative: Patient is a 49-year-old female with no significant past medical history who presents to the emergency department with left arm pain for the last 3 weeks. Patient states that she fell about a month ago and has had persistent pain in her left arm since that time. Patient states that she saw her primary care provider who prescribed her with steroids and she states that she still having significant pain. Patient states that she will wake up in the middle of the night with pain in the left arm. Patient denies any swelling of the arm. Patient denies any chest pain or shortness of breath. Patient states that she has tried Tylenol and ibuprofen without significant relief. Patient states that she does not have a history of blood clots. Patient denies any fevers or drainage from the arm. Patient denies any wounds. Patient does feel like there is a lump on the medial side of her elbow. Related Data Previous Rx's ?Medication ?Instructions ?Recorded levothyroxine 25 mcg tablet 25 mcg PO QDAY #90 tabs 12/06/18 (Synthroid) hydrochlorothiazide 25 mg tablet 25 mg PO DAILY #30 tabs 08/28/20 aspirin 81 mg tablet,delayed 81 mg PO DAILY #30 tabs 09/03/20 release blood sugar diagnostic (Blood #100 ea 09/03/20 Glucose Test strips) blood-glucose meter (Blood Glucose #1 ea 09/03/20 Monitoring kit) cholecalciferol (vitamin D3) 1,250 1,250 mcg PO WEEKLY #7 tabs 09/03/20 mcg (50,000 unit) tablet cholecalciferol (vitamin D3) 50 50 mcg PO DAILY 30 days #30 caps 09/03/20 mcg (2,000 unit) capsule metformin 500 mg tablet 500 mg PO BID #30 tabs 09/03/20 lancets 30 gauge (Droplet Lancets) #100 ea 05/22/21 benzonatate 100 mg capsule 100 mg PO TID #90 caps 01/08/25 ibuprofen 800 mg tablet 800 mg PO Q8H PRN pain #30 tabs 03/11/25 methocarbamol 750 mg tablet 750 mg PO Q8H #90 tabs 03/11/25 Allergies Allergy/AdvReac Type Severity Reaction Status Date / Time amitriptyline AdvReac itching Verified 01/08/25 22:56 [facility] Disclaimer: The information contained in this section may have been updated after the patient was seen, as this information can be updated by other users. Medical History (Updated 03/11/25 @ 20:43 by Debbie Santiago DO) Right upper quadrant abdominal pain Edema Thoracic back pain Hypothyroidism Social History Smoking Status: Never smoker alcohol intake: never substance use type: denies use current occupational status: employed Travel in the last 8 weeks?: None household members: spouse and children housing: house Have you lived/traveled outside US in past 30 days?: No Contact w/someone who lives/traveled outside US past 30 days?: No Exposure to someone with infectious disease in past 14 days?: No Do you have a fever (greater than 100.4 F or 38 C)?: No Have you tested positive for COVID-19?: No Exposed to someone with COVID-19 in past 14 days?: No Do you have a sore throat?: No Do you have a cough?: No Do you have any weakness?: No Do you have any diarrhea?: No Are you experiencing any unusual bleeding?: No Do you have any muscle aches/pain?: No Do you have any abdominal pain?: No Are you experiencing loss of taste or smell?: No Other Medical History Have you received the Flu Vaccine for this season: No Have you received the Pneumonia Vaccine: No ROS Obtained: Yes All systems reviewed & no additional complaints except as documented and Yes Systems reviewed as appropriate & no additional complaints except as documented Physical Exam General General appearance: alert and in no apparent distress Head Head exam: atraumatic, normocephalic and normal inspection Eye Eye exam: Present normal appearance, PERRL and EOMI; Absent scleral icterus ENT ENT exam: Present normal exam and normal external ear exam Neck Neck exam: Present normal inspection and full ROM Chest Chest inspection: Present normal inspection and symmetric chest wall rise Respiratory Respiratory exam: Present normal lung sounds bilaterally; Absent respiratory distress or wheezes Cardiovascular Cardiovascular exam: Present regular rate, normal rhythm, normal heart sounds and other (2+ radial pulse in the LUE) Abdominal Exam Abdominal exam: Present soft and distention; Absent tenderness, guarding or rebound Extremities Exam Extremities exam: Present normal inspection, full ROM and other (LUE with area of tenderness at the L elbow near the medial aspect) Back Exam Back exam: Present normal inspection and full ROM Neurological Exam Neurological exam: Present alert and oriented X3 Psychiatric Psychiatric exam: Present normal affect and normal mood Skin Skin exam: Present warm and dry Medical Decision Making Medical Records Medical records reviewed: Yes I reviewed the patient's medical records. Screening: Per USPSTF and CDC recommendations, given the prevalence of disease in our region, it is our hospital?s policy to screen for HIV and viral Hepatitis for all patients aged 18 and over and those with ongoing risk factors. Jay Inquiry Pt receiving controlled substance: No Jay was queried for this patient: No Vital Signs: 03/11/25 17:15 03/11/25 17:46 03/11/25 18:01 Temperature 98.7 F Temperature Source Oral Pulse Rate 70 71 Pulse Rate [Right Radial] 87 Respiratory Rate 20 Blood Pressure 133/78 125/77 Blood Pressure [Right Arm] 150/100 H Blood Pressure Mean 97 Blood Pressure Mean [Right Arm] 116 Blood Pressure Source Blood Pressure Source [Right Arm] Automatic Cuff Blood Pressure Position Blood Pressure Position [Right Arm] Sitting 02 Sat by Pulse Oximetry 100 96 95 Oxygen Delivery Method Room Air Room Air 03/11/25 18:15 03/11/25 18:45 03/11/25 19:00 Temperature Temperature Source Pulse Rate 69 60 62 Pulse Rate [Right Radial] Respiratory Rate Blood Pressure 144/77 H 119/71 Blood Pressure [Right Arm] Blood Pressure Mean Blood Pressure Mean [Right Arm] Blood Pressure Source Blood Pressure Source [Right Arm] Blood Pressure Position Blood Pressure Position [Right Arm] 02 Sat by Pulse Oximetry 99 97 98 Oxygen Delivery Method Room Air Room Air Room Air 03/11/25 19:00 03/11/25 19:15 03/11/25 19:16 Temperature Temperature Source Pulse Rate 63 65 Pulse Rate [Right Radial] Respiratory Rate Blood Pressure 116/74 Blood Pressure [Right Arm] Blood Pressure Mean 84 Blood Pressure Mean [Right Arm] Blood Pressure Source Blood Pressure Source [Right Arm] Blood Pressure Position Blood Pressure Position [Right Arm] 02 Sat by Pulse Oximetry 97 98 Oxygen Delivery Method Room Air Room Air 03/11/25 19:16 03/11/25 19:31 03/11/25 19:31 Temperature Temperature Source Pulse Rate 70 Pulse Rate [Right Radial] Respiratory Rate Blood Pressure 134/71 137/70 Blood Pressure [Right Arm] Blood Pressure Mean 92 88 Blood Pressure Mean [Right Arm] Blood Pressure Source Blood Pressure Source [Right Arm] Blood Pressure Position Blood Pressure Position [Right Arm] 02 Sat by Pulse Oximetry 100 Oxygen Delivery Method Room Air 03/11/25 19:45 03/11/25 19:46 03/11/25 19:46 Temperature Temperature Source Pulse Rate 71 71 Pulse Rate [Right Radial] Respiratory Rate Blood Pressure 146/81 H Blood Pressure [Right Arm] Blood Pressure Mean 102 Blood Pressure Mean [Right Arm] Blood Pressure Source Blood Pressure Source [Right Arm] Blood Pressure Position Blood Pressure Position [Right Arm] 02 Sat by Pulse Oximetry 99 Oxygen Delivery Method Room Air 03/11/25 20:01 03/11/25 20:01 03/11/25 20:15 Temperature Temperature Source Pulse Rate 65 62 Pulse Rate [Right Radial] Respiratory Rate Blood Pressure 132/68 Blood Pressure [Right Arm] Blood Pressure Mean 89 Blood Pressure Mean [Right Arm] Blood Pressure Source Blood Pressure Source [Right Arm] Blood Pressure Position Blood Pressure Position [Right Arm] 02 Sat by Pulse Oximetry 97 96 Oxygen Delivery Method Room Air Room Air 03/11/25 20:16 03/11/25 20:16 03/11/25 20:30 Temperature Temperature Source Pulse Rate 63 62 Pulse Rate [Right Radial] Respiratory Rate Blood Pressure 125/70 Blood Pressure [Right Arm] Blood Pressure Mean 87 Blood Pressure Mean [Right Arm] Blood Pressure Source Blood Pressure Source [Right Arm] Blood Pressure Position Blood Pressure Position [Right Arm] 02 Sat by Pulse Oximetry 96 96 Oxygen Delivery Method Room Air Room Air 03/11/25 20:31 03/11/25 20:31 03/11/25 20:45 Temperature Temperature Source Pulse Rate 67 72 Pulse Rate [Right Radial] Respiratory Rate Blood Pressure 140/80 Blood Pressure [Right Arm] Blood Pressure Mean 100 Blood Pressure Mean [Right Arm] Blood Pressure Source Blood Pressure Source [Right Arm] Blood Pressure Position Blood Pressure Position [Right Arm] 02 Sat by Pulse Oximetry 98 Oxygen Delivery Method Room Air 03/11/25 20:46 03/11/25 20:46 03/11/25 20:51 Temperature Temperature Source Pulse Rate 67 63 Pulse Rate [Right Radial] Respiratory Rate Blood Pressure 119/93 H Blood Pressure [Right Arm] Blood Pressure Mean 102 Blood Pressure Mean [Right Arm] Blood Pressure Source Blood Pressure Source [Right Arm] Blood Pressure Position Blood Pressure Position [Right Arm] 02 Sat by Pulse Oximetry 97 97 Oxygen Delivery Method Room Air Room Air 03/11/25 21:00 03/11/25 21:12 Temperature 98.7 F Temperature Source Oral Pulse Rate 63 Pulse Rate [Right Radial] Respiratory Rate 18 Blood Pressure 138/91 H 138/91 H Blood Pressure [Right Arm] Blood Pressure Mean 98 Blood Pressure Mean [Right Arm] Blood Pressure Source Automatic Cuff Blood Pressure Source [Right Arm] Blood Pressure Position Sitting Blood Pressure Position [Right Arm] 02 Sat by Pulse Oximetry Oxygen Delivery Method Room Air Lab Data Lab results reviewed: Yes I reviewed the patient's lab results. Lab Results 03/11/25 18:30: WBC 8.4, RBC 4.38, Hgb 12.5, Hct 38.7, MCV 88.4, MCH 28.5, MCHC 32.3, RDW 12.6, Plt Count 311, MPV 9.8, Neut % (Auto) 67.3, Lymph % (Auto) 16.5, [place] % (Auto) 9.0, Eos % (Auto) 6.5, Baso % (Auto) 0.5, Neut # (Auto) 5.7, Lymph # (Auto) 1.4, [place] # (Auto) 0.8, Eos # (Auto) 0.6 H, Baso # (Auto) 0.0, Sodium 139, Potassium 3.5, Chloride 101, Carbon Dioxide 33 H, Anion Gap 8.5, BUN 16, Creatinine 0.70, Estimated Creat Clear 90, Estimated GFR 89, Est GFR ( Amer) 107, Glucose 111 H, Calcium 8.6, Total Bilirubin 0.2, AST 22, ALT 19, Alkaline Phosphatase 93, Total Creatine Kinase 68, Total Protein 7.4, Albumin 4.2, Globulin 3.2, Albumin/Globulin Ratio 1.3 03/11/25 18:30 03/11/25 18:30 Orders (Tests/Meds): ED MEDICATIONS Discontinued Medications Generic Name Dose Route Start Last Admin Trade Name Alfredoq PRN Reason Stop Dose Admin Acetaminophen 1,000 mg 03/11/25 18:28 03/11/25 18:49 Acetaminophen 500mg Tab PO 03/11/25 18:29 1,000 mg ONCE ONE Administration Ibuprofen 800 mg 03/11/25 18:29 03/11/25 18:50 Ibuprofen 800 Mg Tablet PO 03/11/25 18:30 800 mg ONCE ONE Administration Iopamidol 75 ml 03/11/25 19:22 03/11/25 19:23 Iopamidol-370 (76%);100ml Bottle IV 03/11/25 19:23 75 ml ONCE ONE Administration Oxycodone HCl 5 mg 03/11/25 18:23 03/11/25 19:13 Oxycodone 5mg Immediate Release Tablet PO 03/11/25 18:24 Not Given ONCE ONE Sodium Chloride 10 ml 03/11/25 19:22 03/11/25 19:23 Sodium Chloride 0.9% 10ml Syr (Rad Only) IV 04/10/25 19:21 10 ml NEEDED PRN Administration Maintain IV Site ORDERS Category Date Time Status CT elbow LT w con Stat Cat Scan 03/11/25 18:19 Completed Elbow XR left mininum 3 views [XR elbow LT min 3V] Stat Exams 03/11/25 17:45 Completed POCUS Point of Care (ER Only) Stat Exams 03/11/25 17:43 Completed CBC w/Auto Diff [Complete Blood Count Auto Diff] Stat Lab 03/11/25 18:30 Completed CK [Creatine Kinase] Stat Lab 03/11/25 18:30 Completed CMP [Comprehensive Metabolic Panel] Stat Lab 03/11/25 18:30 Completed Medical Decision Narrative: Patient is a 49-year-old female who presented to the emergency department with left arm pain. On arrival, patient was hemodynamically stable with unremarkable vital signs. Differential includes but not limited to: Fracture, dislocation, sprain, strain, myositis, DVT, amongst others. Labs reviewed and interpreted by myself: CBC showed no leukocytosis, hemoglobin was stable. CMP was unremarkable. X-rays were obtained which shows no acute fracture. Bedside ultrasound was performed which showed no evidence of DVT. Patient significant pain with an area of tenderness and lump, CT scan was further evaluated to evaluate for hematoma versus myositis. CT scan of the left upper extremity was obtained which showed some inflammation in the arm but no obvious abscess or other acute pathology. Patient may have a mild bursitis developing. Patient was given a sling for comfort. Patient was recommended to take Tylenol and ibuprofen and patient was given Robaxin. Patient was sent with outpatient orthopedic follow-up. Patient was otherwise discharged home in stable condition. Critical Care Critical Care Time Critical Care Time: No
--- OUTSIDE RECORDS SUMMARY | 2025-03-11 17:38 | XMS_ITS | Clinical Summary ---
Author Organization [facility] Address [address] [place] [id number] Care Team Providers Care Crib Attendant Name Role Phone Jez Enamorado MD Primary Care Provider [phone] Allergies No known active allergies Medications HYDROcod [...] 2) 2024 INFLUENZA VACCINE 11/11/2024 Care Teams Crib Attendant Relationship Specialty Start Date End Date Jez Enamorado MD [address] ATTN: [place] [address] PCP - General 02/05/15
--- OUTSIDE RECORDS SUMMARY | 2025-03-11 17:38 | XMS_ITS | Patient Health Record ---
Author Organization [facility] Address [address] [facility] [address] [place] [address] Care Team Providers Care Automatic Grinding Machine Operator Name Role Phone Tamara Aguilera Unavailable [phone] Reason For Referral No Information Problems Problem Type SNOMED Code ICD Code Onset Dates Problem Status W/U Status Risk Notes Problem Information temporarily unavailable Abnormal menses (N92.6) 9 Active confirmed Irregular [...] TABLET LEVOXYL TABLET Surgical History Surgery Date(Month/Year) Carpal Tunnel x2 & Tubal Ligation 2004
--- NOTE | 2025-03-11 17:45 | XR_ITS ---
PROCEDURE INFORMATION: Exam: XR Left Elbow Exam date and time: 03/11/2025 5:51 PM Age: 49 years old Clinical indication: Pain; Elbow; Left TECHNIQUE: Imaging protocol: Radiologic exam of the left elbow. Views: 3 or more views. COMPARISON: No relevant prior studies available. FINDINGS: Bones/joints: Osseous mineralization within normal limits. No acute fracture or malalignment. No joint effusion. Circumscribed calcification is present at the expected origin of the common flexor tendon. Findings can be seen in association with epicondylitis. Please correlate with any focal pain over the medial margin of the elbow. No significant arthritic change of the elbow joint. Subtle curvilinear lucency along the periphery of the lateral humeral condyle. This is seen only on one view. Soft tissues: Soft tissues appear unremarkable. IMPRESSION: 1. No definitive fracture or malalignment. No significant arthritic change. No joint effusion. 2. Corticated calcification along the margin of the medial condyle of the distal humerus at the expected origin of the common flexor tendon. Findings can be seen in the setting of epicondylitis. Please correlate with any focal pain over the medial margin of the elbow. 3. Curvilinear lucency along the periphery of the lateral humeral condyle. This is only seen on one view. This is somewhat nonspecific and may correspond to overlapping densities. Please correlate with any history of direct trauma or focal pain over the lateral humeral condyle.
--- NOTE | 2025-03-11 18:19 | CT_ITS ---
PROCEDURE INFORMATION: Exam: CT Left Upper Extremity With Contrast, Elbow Exam date and time: 03/11/2025 7:21 PM Age: 49 years old Clinical indication: Pain; Elbow; Left; Additional info: Concern for hematoma vs myositis TECHNIQUE: Imaging protocol: Computed tomography of the left upper extremity with contrast. Exam focused on the elbow. Radiation optimization: All CT scans at this facility use at least one of these dose optimization techniques: automated exposure control; mA and/or kV adjustment per patient size (includes targeted exams where dose is matched to clinical indication); or iterative reconstruction. Contrast material: ISOVUE; Contrast volume: 75 ml; Contrast route: IV; COMPARISON: CR XR ELBOW LT MIN 3V 03/11/2025 5:51 PM FINDINGS: Bones/joints: Normal bony alignment of the left elbow. No fracture identified. No bony erosion. Small calcification at the medial humeral epicondyle suggestive of previous tendinitis. Soft tissues: There is subcutaneous increased attenuation of the posterior left elbow that is most prominent within the subcutaneous fat posterior to the olecranon. The subcutaneous fatty increased attenuation extends distally at the midline to involve the proximal posterior forearm. There is a mild degree of enhancement and involvement of the posterior musculature at the midline of the posterior elbow. There is also a mild increase in density within the subcutaneous fat lateral to the midline at the elbow and within the proximal forearm. There is a mild degree of posterior skin thickening at the midline. There is no well-defined cyst, abscess or hematoma. No other soft tissue abnormality is appreciated. No joint effusion is appreciated. There is satisfactory vascular enhancement of the left upper extremity demonstrated on the limited images. IMPRESSION: 1. No acute bony abnormality or malalignment of the left elbow is appreciated. 2. There is increased attenuation within the posterior subcutaneous fat of the left elbow at the midline and extending laterally that is most prominent beginning at the olecranon and extending into the proximal posterior left forearm. No well-defined cyst, abscess or hematoma. 3. No left elbow joint effusion. Differential considerations include trauma and cellulitis. Early olecranon bursitis is also a consideration.
[2025-03-11 18:48] LABS: Albumin Level 4.2 g/dl (3.5-5.0); Chloride 101 mmol/L (98-107); Hematocrit 38.7 % (37.0-47.0); Hemoglobin 12.5 g/dL (12.2-16.2); Immature Granulocytes % 0.2 %; Mean Corpuscular HGB Conc 32.3 g/dL (31.8-35.4); Mean Corpuscular Hemoglobin 28.5 pg (27.0-31.2); Mean Corpuscular Volume 88.4 fl (81-99); Nucleated Red Blood Cells % 0 %; Platelet Count 311 K/mm3 (142-424); Potassium 3.5 mmoL/L (3.5-5.1); Red Blood Count 4.38 M/mm3 (4.20-5.40); Red Cell Distribution Width-SD 40.8 fL; Sodium 139 mmol/L (136-145); White Blood Count 8.4 K/mm3 (4.8-10.8)
[2025-03-11] MEDS: ACETAMINOPHEN 500MG TAB 1000 MG PO (18:49)
[2025-03-11] MEDS: IBUPROFEN 800 MG TABLET PO (18:50)
[2025-03-11 18:51] LABS: Alanine Aminotransferase 19 U/L (12-78); Albumin/Globulin Ratio 1.3 (1.1-1.8); Alkaline Phosphatase 93 U/L (38-126); Anion Gap 8.5 mEq/L (5-15); Aspartate Amino Transferase 22 U/L (14-36); Bilirubin,Total 0.2 mg/dl (0.2-1.3); Blood Urea Nitrogen 16 mg/dl (7-17); Carbon Dioxide 33 mmol/L (22.0-30.0); Creatine Kinase 68 U/L (30-135); Creatinine Clearance Estimated 90 mL/min (50-200); Creatinine,Serum 0.70 mg/dl (0.52-1.04); Estimated Glomerular Filt Rate 89 ml/min (>60); GFR (African American) 107 ML/MIN (>60); Globulin 3.2 g/dL (1.3-3.2); Total Protein,Serum 7.4 g/dl (6.3-8.2)
[2025-03-11 18:52] LABS: Calcium 8.6 mg/dl (8.4-10.2); Glucose 111 mg/dl (74-100)
[2025-03-11] MEDS: IOPAMIDOL-370 (76%);100ML BOTTLE 75 ML IV (19:23)
[2025-03-11] MEDS: SODIUM CHLORIDE 0.9% 10ML SYR (RAD ONLY) 10 ML IV (19:23)
== END 2025-03-11 21:15 | disposition home or self-care (01) ==
PROVIDERS: Emergency Provider Student in an Organized Health Care Education/Training Program; PCP Nurse Practitioner Family
DX: M25.522 Pain in left elbow (principal); M79.602 Pain in left arm; Z88.8 Allergy status to other drugs, medicaments and biological substances; E03.9 Hypothyroidism, unspecified; Z79.890 Hormone replacement therapy; Z79.899 Other long term (current) drug therapy
CPT/HCPCS: 73080; 73201; 80053; 82550; 85025; 99285; Q9967